=== PATIENT | female | born 1940 | race Asian ===

== ENCOUNTER 2019-01-10 09:56 | Inpatient (IN) | payer OTHER ==
--- NOTE | 2019-01-10 10:52 | PDOC ---
History of Present Illness - General Chief Complaint: Respiratory Stated Complaint: DIFFICULTY BREATHING Time Seen by Provider: 01/10/19 10:44 - History of Present Illness Initial Comments: 78 year old female with PMH of HTN, HLD, and NIDDM presenting with SOB worsening over the past two days. Patient states that she and chronic lower extremity swelling and wasn't sure if she was on a "Water pill". Denies any fevers, cough, chills, nausea, vomiting, diarrhea, or other symptoms. 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 Past History - Past Medical History Allergies/Adverse Reactions: Allergies Allergy/AdvReac Type Severity Reaction Status Date / Time No Known Allergies Allergy Verified 01/10/19 10:10 Home Medications: Ambulatory Orders Amlodipine Besylate [Norvasc -] 5 mg PO DAILY 01/10/19 Atorvastatin Calcium [Lipitor] 10 mg PO HS 01/10/19 Carvedilol [Coreg -] 25 mg PO BID 01/10/19 Losartan Potassium [Cozaar] 125 mg PO DAILY 01/10/19 Metformin HCl [Glucophage] 500 mg PO BID 01/10/19 - Suicide/Smoking/Psychosocial Hx Smoking History: Never smoked Review of Systems - Review of Systems Constitutional: No: Chills, Diaphoresis, Fever HEENTM: No: Blurred Vision, Tearing Respiratory: Yes: Orthopnea, Shortness of Breath, SOB with Exertion, SOB at Rest. No: Cough, Wheezing, Productive cough Cardiac (ROS): No: Chest Pain, Edema, Irregular Heart Rate ABD/GI: No: Diarrhea, Nausea, Vomiting : No: Burning, Dysuria, Discharge Musculoskeletal: No: Back Pain, Gout, Joint Pain Integumentary: No: Bruising, Erythema, Flushing Neurological: No: Headache, Numbness, Paresthesia Psychiatric: No: Anxiety, Depression Hematologic/Lymphatic: No: Anemia, Blood Clots, Easy Bleeding *Physical Exam - Vital Signs Last Vital Signs Temp Pulse Resp BP Pulse Ox 97.5 F L 58 L 20 148/44 L 87 L 01/10/19 10:17 01/10/19 10:17 01/10/19 10:17 01/10/19 10:17 01/10/19 10:17 - Physical Exam General Appearance: Yes: Nourished, Appropriately Dressed. No: Apparent Distress HEENT: positive: EOMI, LEONARDO, Normal ENT Inspection, Normal Voice Neck: positive: Trachea midline, Normal Thyroid, Supple. negative: Tender, Rigid Respiratory/Chest: positive: Rales. negative: Chest Tender, Lungs Clear, Normal Breath Sounds (bilateral crackles in lower lung peterson), Respiratory Distress Cardiovascular: positive: Regular Rhythm, Regular Rate ED Treatment Course - LABORATORY CBC & Chemistry Diagram: 01/10/19 11:19 01/10/19 11:19 Medical Decision Making - Medical Decision Making 78 year old female presenting with worsening SOB for the past two days with concern for new CHF corroborated by PE, elevated BNP, and CXr demonstrated pulmonary vascular congestion. Patietn given Lasix 40 IV and admitted under Golden Ortega for new CHF workup. EKG demonstrating rate 62, WV interval 140, QTc 420 , QRS 70, and normal axis with ST or t-wave changes. *DC/Admit/Observation/Transfer Diagnosis at time of Disposition: Acute on chronic diastolic (congestive) heart failure - Discharge Dispostion Condition at time of disposition: Stable Decision to Admit order: Yes - Referrals - Patient Instructions - Post Discharge Activity
[2019-01-10 11:38] LABS: BASO % 1.1 % (0-2.0); EOS % 1.7 % (0-4.5); HEMATOCRIT 35.7 % (32.4-45.2); HEMOGLOBIN 11.1 GM/dL (10.7-15.3); LYMPH % 17.1 % (8-40); MCH 21.2 pg (25.7-33.7); MCHC 31.1 g/dl (32.0-36.0); MEAN CELL VOLUME 68.3 fl (80-96); MEAN PLT VOLUME 7.7 fl (7.5-11.1); MONO % 5.2 % (3.8-10.2); NEUT % 74.9 % (42.8-82.8); PLATELET COUNT 229 K/MM3 (134-434); RBC 5.23 M/mm3 (3.60-5.2); RDW 17.5 % (11.6-15.6); WHITE BLOOD COUNT 7.4 K/mm3 (4.0-10.0)
[2019-01-10 11:52] LABS: INR 0.9 (0.83-1.09); PROTHROMBIN TIME (PATIENT) 10.6 SEC (9.7-13.0)
[2019-01-10 12:06] LABS: ALBUMIN 4.2 g/dl (3.4-5.0); ALK PHOS 67 U/L (45-117); ANION GAP 6 MMOL/L (8-16); BILIRUBIN,TOTAL 1.3 mg/dL (0.2-1); BLOOD UREA NITROGEN 25 mg/dL (7-18); CALCIUM 9.5 mg/dL (8.5-10.1); CHLORIDE 101 mmol/L (98-107); CO2 28 mmol/L (21-32); CREATININE 0.9 mg/dL (0.55-1.3); GLUCOSE,RANDOM 126 mg/dL (74-106); N-TERMINAL BNP 1029.4 pg/ml (5-450); SGOT/AST 25 U/L (15-37); SGPT/ALT 19 U/L (13-61); SODIUM 135 mmol/L (136-145); TOT PROT 8.5 g/dl (6.4-8.2)
[2019-01-10] MEDS ORDERED: FUROSEMIDE 40 MG/4 ML INJECTABLE VIAL IVPUSH ONE ×2 (12:17→18:14)
--- NOTE | 2019-01-10 12:22 | PDOC ---
Attending Attestation - Resident Resident Name: Susan Molina - ED Attending Attestation I have performed the following: I have examined & evaluated the patient, The case was reviewed & discussed with the resident, I agree w/resident's findings & plan, Exceptions are as noted - HPI HPI: 01/10/19 12:18 78 F with h/o HTN, DM, HLD, presenting to ED with SOB x 2 days. Pt reports ALICEA and orthopnea. Denies any CP. Endorses BLE swelling that is on and off. Pt denies h/o heart failure. Denies F/C. Denies cough. No recent travel/ immobilization. - Physicial Exam PE: 01/10/19 12:21 "GENERAL: Awake, alert, and fully oriented, in no acute distress. HEAD: No signs of trauma EYES: PERRLA, EOMI, sclera anicteric, conjunctiva clear ENT: Auricles normal inspection, hearing grossly normal, nares patent, oropharynx clear without exudates. Moist mucosa NECK: Nontender, no stepoffs, Normal ROM, supple, no lymphadenopathy, JVD, or masses LUNGS: + rales bilaterally HEART: Regular rate and rhythm, normal S1 and S2, no murmurs, rubs or gallops ABDOMEN: Soft, nontender, normoactive bowel sounds. No guarding, no rebound. No masses EXTREMITIES: +2 PE BLE NEUROLOGICAL: Cranial nerves II through XII intact. 5/5 strength and sensation in all extremities, Normal speech, normal gait, normal cerebellar function SKIN: Warm, Dry, normal turgor, no rashes or lesions noted. - Medical Decision Making 01/10/19 12:22 78 F with SOB, ALICEA, orthopnea. Clinically concerning for new onset CHF. Pt with BLE swelling, but no asymmetry. No risk factors for DVT. Low suspicion for PE. Pt with no ischemic EKG changes, but will r/o ACS. - Labs, trop, BNP - CXR - Diurese PRN - Admit tele
[2019-01-10] MEDS ORDERED: FUROSEMIDE 40 MG/4 ML INJECTABLE VIAL ONE ×2 (12:25→19:21)
[2019-01-10 13:55] LABS: ANISOCYTOSIS 2+; MACROCYTOSIS 0; OVALOCYTE 1+; PLATELET ESTIMATE NORMAL
--- NOTE | 2019-01-10 15:18 | EKG ---
Test Reason : Blood Pressure : / mmHG Vent. Rate : 062 BPM Atrial Rate : 062 BPM P-R Int : 140 ms QRS Dur : 070 ms QT Int : 414 ms P-R-T Axes : 057 078 033 degrees QTc Int : 420 ms NORMAL SINUS RHYTHM NORMAL ECG NO PREVIOUS ECGS AVAILABLE Confirmed by CHARISSE KEY MD ([id number]) on 01/10/2019 3:18:10 PM Referred By: Confirmed By:CHARISSE KEY MD
--- NOTE | 2019-01-10 18:10 | CON.CARD ---
Consult Consult Specialty:: Cardiology Referred by:: Emergency Medicine Reason for Consultation:: CHF - History of Present Illness Chief Complaint: Dyspnea History of Present Illness: 78 F with h/o HTN, DM, HLD, presenting to ED with SOB, ALICEA, bilateral LE edema and orthopnea without CP, palpitations, near or true syncope, PND. Reports medication and diet compliance, denies NSAID use. - History Source History Provided By: Patient Limitations to Obtaining History: No Limitations - Smoking History Smoking history: Never smoked Home Medications - Allergies Allergies/Adverse Reactions: Allergies Allergy/AdvReac Type Severity Reaction Status Date / Time No Known Allergies Allergy Verified 01/10/19 10:10 - Home Medications Home Medications: Ambulatory Orders Amlodipine Besylate [Norvasc -] 5 mg PO DAILY 01/10/19 Atorvastatin Calcium [Lipitor] 10 mg PO HS 01/10/19 Carvedilol [Coreg -] 25 mg PO BID 01/10/19 Losartan Potassium [Cozaar] 125 mg PO DAILY 01/10/19 Metformin HCl [Glucophage] 500 mg PO BID 01/10/19 Review of Systems - Review of Systems Cardiovascular: reports: Edema Respiratory: reports: Orthopnea, SOB, SOB on Exertion Vital Signs: Vital Signs Temperature 97.5 F L 01/10/19 10:17 Pulse Rate 58 L 01/10/19 16:11 Respiratory Rate 18 01/10/19 16:11 Blood Pressure 148/53 L 01/10/19 16:11 O2 Sat by Pulse Oximetry (%) 98 01/10/19 16:11 Constitutional: Yes: No Distress, Calm Neck: Yes: Supple Respiratory: Yes: Regular, Diminished, On Nasal O2 Gastrointestinal: Yes: Normal Bowel Sounds, Soft Cardiovascular: Yes: Regular Rate and Rhythm JVD: No Carotid Bruit: No Heart Sounds: Yes: S1, S2 Murmur: Yes: Systolic Murmur, Grade 1 Edema: Yes Edema: LLE: 1+, RLE: 1+ - Other Data Labs, Other Data: CBC, BMP 01/10/19 11:19 01/10/19 11:19 INR, PTT INR 0.90 (0.83-1.09) 01/10/19 11:19 Troponin, BNP 01/10/19 11:19 Troponin I < 0.02 B-Natriuretic Peptide 1029.4 H Troponin, BNP 01/10/19 11:19 Troponin I < 0.02 B-Natriuretic Peptide 1029.4 H Imaging - Results Chest X-ray: Report Reviewed (Congestion) EKG: Report Reviewed (NSR @ [address]-T changes) Problem List - Problems (1) Acute on chronic diastolic (congestive) heart failure Code(s): I50.33 - ACUTE ON CHRONIC DIASTOLIC (CONGESTIVE) HEART FAILURE (2) Hyperlipidemia Code(s): E78.5 - HYPERLIPIDEMIA, UNSPECIFIED Qualifiers: Hyperlipidemia type: pure hypercholesterolemia Qualified Code(s): E78.00 - Pure hypercholesterolemia, unspecified; E78.0 - Pure hypercholesterolemia (3) Type 2 diabetes mellitus Code(s): E11.9 - TYPE 2 DIABETES MELLITUS WITHOUT COMPLICATIONS Qualifiers: Diabetes mellitus skilled nursing insulin use: without skilled nursing use (4) Hypertensive cardiomyopathy Code(s): I11.9 - HYPERTENSIVE HEART DISEASE WITHOUT HEART FAILURE; I43 - CARDIOMYOPATHY IN DISEASES CLASSIFIED ELSEWHERE Qualifiers: Heart failure presence: with heart failure Qualified Code(s): I11.0 - Hypertensive heart disease with heart failure; I43 - Cardiomyopathy in diseases classified elsewhere Assessment/Plan 1. Acute on chronic diastolic heart failure 2. HTN cardiomyopathy 3. Hyperlipidemia 4. Type 2 DM P:1. IV diuresis with monitor diuretic response, renal fxn and electrolytes 2. Continue losartan 100 qd, carvedilol 12.5 bid, Lipitor 10 qhd 3. Echocardiogram to assess ventricular and valve fxn, check TSH, lipid panel, HA1c 4. Thank you for consultative opportunity
--- NOTE | 2019-01-10 19:44 | HP ---
Admitting History and Physical - Primary Care Physician PCP: Jane Ortega - Admission History of Present Illness: 78 F with h/o HTN, DM, HLD, presenting to ED with SOB x 2 days. Pt reports ALICEA and orthopnea. Denies any CP. Endorses BLE swelling that is on and off. Pt denies h/o heart failure. Denies F/C. Denies cough. No recent travel/ immobilization. - Past Medical History Cardiovascular: Yes: HTN, Hyperlipdemia Endocrine: Yes: Diabetes Mellitus - Smoking History Smoking history: Never smoked Home Medications - Allergies Allergies/Adverse Reactions: Allergies Allergy/AdvReac Type Severity Reaction Status Date / Time No Known Allergies Allergy Verified 01/10/19 10:10 - Home Medications Home Medications: Ambulatory Orders Amlodipine Besylate [Norvasc -] 5 mg PO DAILY 01/10/19 Atorvastatin Calcium [Lipitor] 10 mg PO HS 01/10/19 Carvedilol [Coreg -] 25 mg PO BID 01/10/19 Losartan Potassium [Cozaar] 125 mg PO DAILY 01/10/19 Metformin HCl [Glucophage] 500 mg PO BID 01/10/19 Furosemide [Lasix -] 20 mg PO DAILY #30 tablet 01/11/19 Physical Examination Vital Signs: Vital Signs Temperature 97.5 F L 01/10/19 10:17 Pulse Rate 58 L 01/10/19 16:11 Respiratory Rate 18 01/10/19 16:11 Blood Pressure 148/53 L 01/10/19 16:11 O2 Sat by Pulse Oximetry (%) 98 01/10/19 16:11 Constitutional: Yes: No Distress HENT: Yes: Atraumatic Neck: Yes: Supple Cardiovascular: Yes: Regular Rate and Rhythm Respiratory: Yes: Rhonchi Gastrointestinal: Yes: Normal Bowel Sounds Extremities: Yes: WNL Edema: No Neurological: Yes: Alert, Oriented Labs: CBC, BMP 01/10/19 11:19 01/10/19 11:19 Problem List - Problems (1) Acute on chronic diastolic (congestive) heart failure Assessment/Plan: on po lasix Code(s): I50.33 - ACUTE ON CHRONIC DIASTOLIC (CONGESTIVE) HEART FAILURE (2) Hyperlipidemia Assessment/Plan: on meds Code(s): E78.5 - HYPERLIPIDEMIA, UNSPECIFIED Qualifiers: Hyperlipidemia type: pure hypercholesterolemia Qualified Code(s): E78.00 - Pure hypercholesterolemia, unspecified; E78.0 - Pure hypercholesterolemia (3) Hypertensive cardiomyopathy Assessment/Plan: on meds Code(s): I11.9 - HYPERTENSIVE HEART DISEASE WITHOUT HEART FAILURE; I43 - CARDIOMYOPATHY IN DISEASES CLASSIFIED ELSEWHERE Qualifiers: Heart failure presence: with heart failure Qualified Code(s): I11.0 - Hypertensive heart disease with heart failure; I43 - Cardiomyopathy in diseases classified elsewhere (4) Type 2 diabetes mellitus Assessment/Plan: on meds Code(s): E11.9 - TYPE 2 DIABETES MELLITUS WITHOUT COMPLICATIONS Qualifiers: Diabetes mellitus senior living insulin use: without terminal make up operator use Assessment/Plan Laboratory Tests 01/10/19 01/10/19 01/10/19 11:19 11:19 11:19 WBC 7.4 RBC 5.23 H Hgb 11.1 Hct 35.7 MCV 68.3 L MCH 21.2 L MCHC 31.1 L RDW 17.5 H Plt Count 229 MPV 7.7 Absolute Neuts (auto) 5.5 Neutrophils % 74.9 Lymphocytes % 17.1 Monocytes % 5.2 Eosinophils % 1.7 Basophils % 1.1 Nucleated RBC % 0 Hypochromia 1+ Platelet Estimate Normal Polychromasia 1+ Poikilocytosis 1+ Anisocytosis 2+ Microcytosis 2+ Macrocytosis 0 Ovalocytes 1+ Schistocytes 1+ PT with INR 10.60 INR 0.90 Sodium 135 L Potassium 5.0 Chloride 101 Carbon Dioxide 28 Anion Gap 6 L BUN 25 H Creatinine 0.9 Creat Clearance w eGFR 60.56 Random Glucose 126 H Calcium 9.5 Total Bilirubin 1.3 H AST 25 ALT 19 Alkaline Phosphatase 67 Troponin I < 0.02 B-Natriuretic Peptide 1029.4 H Total Protein 8.5 H Albumin 4.2 Active Medications Generic Name Dose Route Start Last Admin Trade Name Freq PRN Reason Stop Dose Admin Atorvastatin Calcium 10 mg 01/10/19 22:00 Lipitor - PO HS [facility] Carvedilol 12.5 mg 01/10/19 22:00 Coreg - PO BID RITU Furosemide 40 mg 01/11/19 10:00 Lasix Injection - IVPUSH DAILY [facility] Losartan Potassium 100 mg 01/11/19 10:00 Cozaar - PO DAILY [facility] Metformin HCl 500 mg 01/11/19 07:00 Glucophage - PO BID@0700,1630 [facility]
[2019-01-10] MEDS ORDERED: ATORVASTATIN CA 10 MG TABLET (FP) ONE (22:29)
[2019-01-10] MEDS ORDERED: HEPARIN NA (PORCINE) 5,000 UNITS/ML 1ML VIAL ONE (22:29)
[2019-01-10] MEDS ORDERED: CARVEDILOL 12.5 MG TABLET (FP) ONE (22:29)
[2019-01-10] MEDS: CARVEDILOL 12.5 MG TABLET (FP) PO SCH (22:44)
[2019-01-10] MEDS: HEPARIN NA (PORCINE) 5,000 UNITS/ML 1ML VIAL SQ SCH (22:45)
[2019-01-10] MEDS: ATORVASTATIN CA 10 MG TABLET (FP) PO SCH (22:45)
[2019-01-11] MEDS: metFORMIN HCL 500 MG TABLET (FP) PO SCH ×2 (07:05→17:26)
[2019-01-11 07:14] LABS: ANION GAP 5 MMOL/L (8-16); BLOOD UREA NITROGEN 28 mg/dL (7-18); CALCIUM 9.1 mg/dL (8.5-10.1); CHLORIDE 98 mmol/L (98-107); CHOLESTEROL 148 mg/dL (50-200); CO2 33 mmol/L (21-32); GLUCOSE,RANDOM 99 mg/dL (74-106); HDL CHOLESTEROL 63 mg/dL (40-60); POTASSIUM 4.1 mmol/L (3.5-5.1); SODIUM 136 mmol/L (136-145); TRIGLYCERIDES 94 mg/dL (0-150)
[2019-01-11 07:23] VITALS: BMI 28.0
--- NOTE | 2019-01-11 09:52 | PN ---
Progress Note, Physician Chief Complaint: Events noted Not in distress History of Present Illness: Patient was seen and examined. Awake and alert. Chart was reviewed Denies chest pain or palpitations. Less SOB this am - Current Medication List Current Medications: Active Medications Atorvastatin Calcium (Lipitor -) 10 mg PO HS [facility] Last Admin: 01/10/19 22:45 Dose: 10 mg Carvedilol (Coreg -) 12.5 mg PO BID [facility] Last Admin: 01/10/19 22:44 Dose: Not Given Furosemide (Lasix Injection -) 40 mg IVPUSH DAILY [facility] Heparin Sodium (Porcine) (Heparin -) 5,000 unit SQ BID [facility] Last Admin: 01/10/19 22:45 Dose: Not Given Losartan Potassium (Cozaar -) 100 mg PO DAILY [facility] Metformin HCl (Glucophage -) 500 mg PO BID@0700,1630 [facility] Last Admin: 01/11/19 07:05 Dose: 500 mg - Objective Vital Signs: Vital Signs Temperature 97.5 F L 01/11/19 08:21 Pulse Rate 58 L 01/11/19 08:21 Respiratory Rate 20 01/11/19 08:21 Blood Pressure 142/49 L 01/11/19 08:21 O2 Sat by Pulse Oximetry (%) 94 L 01/11/19 08:21 Eyes: Yes: PERRL HENT: Yes: Atraumatic Neck: Yes: Supple Cardiovascular: Yes: Regular Rate and Rhythm, Murmur (Soft SM), S1, S2 Respiratory: Yes: CTA Bilaterally Gastrointestinal: Yes: Normal Bowel Sounds, Soft. No: Tenderness Edema: Yes Edema: LLE: Trace, RLE: Trace Additional Findings/Remarks: - Review of Systems Constitutional: denies: Chills, Fever Cardiovascular: denies: Chest Pain. denies: Palpitations, (+) Shortness of Breath Respiratory: (+) Cough. denies: Hemoptysis, Orthopnea, PND, (+) SOB, SOB on Exertion Gastrointestinal: denies: Abdominal Pain, Constipation, Diarrhea, Melena, Nausea , Rectal Bleeding, Vomiting Neurological: denies: Dizziness, Headache, Seizure, Syncope Labs: CBC, BMP 01/10/19 11:19 01/11/19 05:30 INR, PTT INR 0.90 (0.83-1.09) 01/10/19 11:19 Problem List - Problems (1) HTN (hypertension) Code(s): I10 - ESSENTIAL (PRIMARY) HYPERTENSION Qualifiers: Hypertension type: essential hypertension Qualified Code(s): I10 - Essential (primary) hypertension (2) Acute on chronic diastolic (congestive) heart failure Code(s): I50.33 - ACUTE ON CHRONIC DIASTOLIC (CONGESTIVE) HEART FAILURE (3) Hyperlipidemia Code(s): E78.5 - HYPERLIPIDEMIA, UNSPECIFIED Qualifiers: Hyperlipidemia type: pure hypercholesterolemia Qualified Code(s): E78.00 - Pure hypercholesterolemia, unspecified; E78.0 - Pure hypercholesterolemia (4) Type 2 diabetes mellitus Code(s): E11.9 - TYPE 2 DIABETES MELLITUS WITHOUT COMPLICATIONS Qualifiers: Diabetes mellitus roasterman insulin use: without roasterman use Assessment/Plan 1. Acute on chronic diastolic LV failure 2. HTN 3. Hypercholesterolemia 4. Type 2 DM PLAN: 1. IV diuresis with monitoring renal function and electrolytes 2. Continue Losartan 100 mg QD, Carvedilol 12.5 mg BID and Lipitor 10 QHS 3. Echocardiography to assess LV/RV and valvular function - preliminary reveals normal LV systolic function, mild to moderate TR and pulmonary HTN. Official report to follow Further plans are to follow Lakhwinder Stanley MD
[2019-01-11] MEDS ORDERED: FUROSEMIDE 40 MG/4 ML INJECTABLE VIAL IVPUSH SCH (10:00)
[2019-01-11] MEDS: CARVEDILOL 12.5 MG TABLET (FP) PO SCH ×2 (10:40→22:17)
[2019-01-11] MEDS: LOSARTAN POTASSIUM 50 MG TABLET (FP) PO SCH (10:41)
[2019-01-11] MEDS: HEPARIN NA (PORCINE) 5,000 UNITS/ML 1ML VIAL SQ SCH ×2 (10:48→22:17)
--- NOTE | 2019-01-11 13:13 | ECHO ---
Version: 1 Name: KAR LENNON Exam: Adult Echocardiogram Study Date: 01/11/2019, 9:28 AM Age: 78 Years MMode/2D Measurements & Calculations IVSd: 0.98 cm LVIDs: 2.42 cm LVIDd: 4.2 cm LVPWd: 1.01 cm LAV (MOD-bp): 64.6 ml LVOT diam: 2.01 cm Ao root diam: 2.34 cm LA dimension: 3.5 cm Doppler Measurements & Calculations MV E max jesus: 107.0 cm/sec Med E/e': 20.1 MV A max jesus: 106.7 cm/sec Med Peak E' Jesus: 5.3 cm/sec MV E/A: 1.00 Lat E/e': 17.6 Lat Peak E' Jesus: 6.1 cm/sec MR max P.7 mmHg Ao max P.7 mmHg Ao V2 max: 198.2 cm/sec TR max jesus: 366.8 cm/sec TR max P.9 mmHg Left Ventricle The left ventricular size, thickness and function are normal. Ejection Fraction = 70. The transmitra l spectral Doppler flow pattern is suggestive of impaired LV relaxation. Right Ventricle The right ventricle is normal in size and function. Atria Borderline left atrial enlargement. Right atrial size is normal. Mitral Valve The mitral valve is normal. There is trace to mild mitral regurgitation. Tricuspid Valve The tricuspid valve is not well visualized, but is grossly normal. There is mild to moderate tricusp id regurgitation. There is severe pulmonary hypertension. Right ventricular systolic pressure is elevat ed at 65 mmhg. Assuming the RA pressure is 10 mmHg. Aortic Valve There is moderate aortic sclerosis.;. No hemodynamically significant valvular aortic stenosis. Pulmonic Valve The pulmonic valve is not well visualized. Great Vessels The aortic root is normal size. Pericardium/Pleura There is no pericardial effusion. Summary Statements The left ventricular size, thickness and function are normal. Ejection Fraction = 70. The right ventricle is normal in size and function. Borderline left atrial enlargement. There is moderate aortic sclerosis.; No hemodynamically signific ant valvular aortic stenosis. The mitral valve is normal. There is trace to mild mitral regurgitation. There is severe pulmonary hypertension. Right ventricular systolic pressure is elevated at 65 mmhg. Assuming the RA pressure is 10 mmHg MD Joann Zavala01/11/2019, 12:12 PM Ordering Physician: Osmany Pride Performed By: Niru Avendano
--- NOTE | 2019-01-11 17:45 | DS ---
Physical Examination Vital Signs: Vital Signs Temperature 97.3 F L 01/11/19 15:00 Pulse Rate 50 L 01/11/19 15:00 Respiratory Rate 18 01/11/19 15:00 Blood Pressure 115/68 01/11/19 15:00 O2 Sat by Pulse Oximetry (%) 94 L 01/11/19 08:21 Labs: CBC, BMP 01/10/19 11:19 01/11/19 05:30 Discharge Summary Reason For Visit: SHORTNESS OF BREATH Current Active Problems Acute on chronic diastolic (congestive) heart failure (Acute) HTN (hypertension) (Acute) Hyperlipidemia (Acute) Hypertensive cardiomyopathy (Acute) Type 2 diabetes mellitus (Acute) Condition: Stable - Instructions - Home Medications Comprehensive Discharge Medication List: Ambulatory Orders Amlodipine Besylate [Norvasc -] 5 mg PO DAILY 01/10/19 Atorvastatin Calcium [Lipitor] 10 mg PO HS 01/10/19 Carvedilol [Coreg -] 25 mg PO BID 01/10/19 Losartan Potassium [Cozaar] 125 mg PO DAILY 01/10/19 Metformin HCl [Glucophage] 500 mg PO BID 01/10/19 Furosemide [Lasix -] 20 mg PO DAILY #30 tablet 01/11/19
--- NOTE | 2019-01-11 19:12 | PN ---
Progress Note, Physician History of Present Illness: comfortable - Current Medication List Current Medications: Active Medications Atorvastatin Calcium (Lipitor -) 10 mg PO HS [facility] Last Admin: 01/10/19 22:45 Dose: 10 mg Carvedilol (Coreg -) 12.5 mg PO BID [facility] Last Admin: 01/11/19 10:40 Dose: 12.5 mg Furosemide (Lasix -) 20 mg PO DAILY [facility] Heparin Sodium (Porcine) (Heparin -) 5,000 unit SQ BID [facility] Last Admin: 01/11/19 10:48 Dose: 5,000 unit Losartan Potassium (Cozaar -) 100 mg PO DAILY [facility] Last Admin: 01/11/19 10:41 Dose: 100 mg Metformin HCl (Glucophage -) 500 mg PO BID@0700,1630 [facility] Last Admin: 01/11/19 17:26 Dose: 500 mg - Objective Vital Signs: Vital Signs Temperature 97.3 F L 01/11/19 15:00 Pulse Rate 50 L 01/11/19 15:00 Respiratory Rate 18 01/11/19 15:00 Blood Pressure 115/68 01/11/19 15:00 O2 Sat by Pulse Oximetry (%) 94 L 01/11/19 08:21 HENT: Yes: WNL Neck: Yes: WNL Cardiovascular: Yes: Regular Rate and Rhythm Respiratory: Yes: CTA Bilaterally Gastrointestinal: Yes: Normal Bowel Sounds Extremities: Yes: WNL Edema: No Peripheral Pulses WNL: Yes Neurological: Yes: Alert, Oriented Labs: CBC, BMP 01/10/19 11:19 01/11/19 05:30 INR, PTT INR 0.90 (0.83-1.09) 01/10/19 11:19 Problem List - Problems (1) Acute on chronic diastolic (congestive) heart failure Assessment/Plan: on po lasix Code(s): I50.33 - ACUTE ON CHRONIC DIASTOLIC (CONGESTIVE) HEART FAILURE (2) Hyperlipidemia Assessment/Plan: on meds Code(s): E78.5 - HYPERLIPIDEMIA, UNSPECIFIED Qualifiers: Hyperlipidemia type: pure hypercholesterolemia Qualified Code(s): E78.00 - Pure hypercholesterolemia, unspecified; E78.0 - Pure hypercholesterolemia (3) Hypertensive cardiomyopathy Assessment/Plan: on meds Code(s): I11.9 - HYPERTENSIVE HEART DISEASE WITHOUT HEART FAILURE; I43 - CARDIOMYOPATHY IN DISEASES CLASSIFIED ELSEWHERE Qualifiers: Heart failure presence: with heart failure Qualified Code(s): I11.0 - Hypertensive heart disease with heart failure; I43 - Cardiomyopathy in diseases classified elsewhere (4) Type 2 diabetes mellitus Assessment/Plan: on meds Code(s): E11.9 - TYPE 2 DIABETES MELLITUS WITHOUT COMPLICATIONS Qualifiers: Diabetes mellitus warranty administrator insulin use: without detention use
[2019-01-11] MEDS: ATORVASTATIN CA 10 MG TABLET (FP) PO SCH (22:17)
[2019-01-12] MEDS: metFORMIN HCL 500 MG TABLET (FP) PO SCH ×2 (07:42→17:15)
[2019-01-12] MEDS: CARVEDILOL 12.5 MG TABLET (FP) PO SCH ×2 (10:25→21:07)
[2019-01-12] MEDS: LOSARTAN POTASSIUM 50 MG TABLET (FP) PO SCH (10:25)
[2019-01-12] MEDS: HEPARIN NA (PORCINE) 5,000 UNITS/ML 1ML VIAL SQ SCH ×2 (10:25→21:07)
[2019-01-12] MEDS: FUROSEMIDE 20 MG TABLET (FP) PO SCH (10:26)
--- NOTE | 2019-01-12 11:04 | EKG ---
Test Reason : Blood Pressure : / mmHG Vent. Rate : 056 BPM Atrial Rate : 056 BPM P-R Int : 140 ms QRS Dur : 070 ms QT Int : 456 ms P-R-T Axes : 035 049 052 degrees QTc Int : 440 ms SINUS BRADYCARDIA OTHERWISE NORMAL ECG WHEN COMPARED WITH ECG OF 10-JAN-2019 09:56, NO SIGNIFICANT CHANGE WAS FOUND Confirmed by ANDREA VANG MD ([id number]) on 01/12/2019 11:04:26 AM Referred By: Confirmed By:ANDREA VANG MD
--- NOTE | 2019-01-12 11:38 | PN ---
Progress Note, Physician History of Present Illness: 78 F with h/o HTN, DM, HLD, presenting to ED with SOB, ALICEA, bilateral LE edema and orthopnea without CP, palpitations, near or true syncope, PND. Reports medication and diet compliance, denies NSAID use. - Current Medication List Current Medications: Active Medications Atorvastatin Calcium (Lipitor -) 10 mg PO HS [facility] Last Admin: 01/11/19 22:17 Dose: 10 mg Carvedilol (Coreg -) 12.5 mg PO BID [facility] Last Admin: 01/12/19 10:25 Dose: 12.5 mg Furosemide (Lasix -) 20 mg PO DAILY [facility] Last Admin: 01/12/19 10:26 Dose: 20 mg Heparin Sodium (Porcine) (Heparin -) 5,000 unit SQ BID [facility] Last Admin: 01/12/19 10:25 Dose: 5,000 unit Losartan Potassium (Cozaar -) 100 mg PO DAILY [facility] Last Admin: 01/12/19 10:25 Dose: 100 mg Metformin HCl (Glucophage -) 500 mg PO BID@0700,1630 [facility] Last Admin: 01/12/19 07:42 Dose: 500 mg - Objective Vital Signs: Vital Signs Temperature 98.7 F 01/12/19 06:00 Pulse Rate 60 01/12/19 06:00 Respiratory Rate 18 01/12/19 06:00 Blood Pressure 123/48 L 01/12/19 06:00 O2 Sat by Pulse Oximetry (%) 99 01/11/19 21:00 Constitutional: Yes: No Distress, Calm, Thin Neck: Yes: Supple Cardiovascular: Yes: Regular Rate and Rhythm Respiratory: Yes: Regular, CTA Bilaterally Gastrointestinal: Yes: Normal Bowel Sounds, Soft Edema: No Labs: CBC, BMP 01/10/19 11:19 01/11/19 05:30 INR, PTT INR 0.90 (0.83-1.09) 01/10/19 11:19 - ....Imaging EKG: Report Reviewed (Tele: SR) Problem List - Problems (1) Acute on chronic diastolic (congestive) heart failure Code(s): I50.33 - ACUTE ON CHRONIC DIASTOLIC (CONGESTIVE) HEART FAILURE (2) Hyperlipidemia Code(s): E78.5 - HYPERLIPIDEMIA, UNSPECIFIED Qualifiers: Hyperlipidemia type: pure hypercholesterolemia Qualified Code(s): E78.00 - Pure hypercholesterolemia, unspecified; E78.0 - Pure hypercholesterolemia (3) Type 2 diabetes mellitus Code(s): E11.9 - TYPE 2 DIABETES MELLITUS WITHOUT COMPLICATIONS Qualifiers: Diabetes mellitus [facility] insulin use: without ocean transportation intermediary use (4) Hypertensive cardiomyopathy Code(s): I11.9 - HYPERTENSIVE HEART DISEASE WITHOUT HEART FAILURE; I43 - CARDIOMYOPATHY IN DISEASES CLASSIFIED ELSEWHERE Qualifiers: Heart failure presence: with heart failure Qualified Code(s): I11.0 - Hypertensive heart disease with heart failure; I43 - Cardiomyopathy in diseases classified elsewhere Assessment/Plan 01/11/2019 Echocardiogram: Normal LV and RV size and fxn LVEF 70%, tr-mild MR RVSP 65 mmHg 1. Acute on chronic diastolic heart failure with pulm HTN 2. HTN cardiomyopathy 3. Hyperlipidemia 4. Type 2 DM P:1. Oral diuresis (Lasix 20 qd) with monitor diuretic response, renal fxn and electrolytes 2. Continue losartan 100 qd, carvedilol 12.5 bid, Lipitor 10 qhd 3. D/c planning with f/u in office
--- NOTE | 2019-01-12 13:15 | PN ---
Progress Note (short form) - Note Progress Note: PULMONARY CONSULTATION DICTATED 01/12/19 IMP ACUTE HYPOXEMIC RESPIRATORY FAILURE ACUTE DIASTOLIC HF PULMONARY HTN HYPERTENSIVE CARDIOVASCULAR DISEASE DM HLD PLAN O2 LASIX CHEST CT PFTS OUTPATIENT V/Q OUTPATIENT NOCTURNAL O2 SAT MONITORING OUTPATIENT AMBULATORY O2 SAT ON RA DR GUZMAN Problem List - Problems (1) Acute hypoxemic respiratory failure Code(s): J96.01 - ACUTE RESPIRATORY FAILURE WITH HYPOXIA (2) Acute on chronic diastolic (congestive) heart failure Code(s): I50.33 - ACUTE ON CHRONIC DIASTOLIC (CONGESTIVE) HEART FAILURE (3) HTN (hypertension) Code(s): I10 - ESSENTIAL (PRIMARY) HYPERTENSION Qualifiers: Hypertension type: essential hypertension Qualified Code(s): I10 - Essential (primary) hypertension (4) Hyperlipidemia Code(s): E78.5 - HYPERLIPIDEMIA, UNSPECIFIED Qualifiers: Hyperlipidemia type: pure hypercholesterolemia Qualified Code(s): E78.00 - Pure hypercholesterolemia, unspecified; E78.0 - Pure hypercholesterolemia (5) Hypertensive cardiomyopathy Code(s): I11.9 - HYPERTENSIVE HEART DISEASE WITHOUT HEART FAILURE; I43 - CARDIOMYOPATHY IN DISEASES CLASSIFIED ELSEWHERE Qualifiers: Heart failure presence: with heart failure Qualified Code(s): I11.0 - Hypertensive heart disease with heart failure; I43 - Cardiomyopathy in diseases classified elsewhere (6) Type 2 diabetes mellitus Code(s): E11.9 - TYPE 2 DIABETES MELLITUS WITHOUT COMPLICATIONS Qualifiers: Diabetes mellitus terminal press operator insulin use: without terminal press operator use
--- NOTE | 2019-01-12 15:04 | CONS ---
DATE OF CONSULTATION: 01/12/2019 PULMONARY CONSULTATION REFERRING PHYSICIAN: Jane Ortega MD Patient is a 78-year-old Frisian female with past medical history of hypertension, diabetes, hyperlipidemia, nonsmoker admitted to [facility] with a complaint of 2-day history of increasing shortness of breath and dyspnea on exertion. Patient states she was doing well until 2 days prior to admission when started noticing increasing dyspnea on exertion and was also orthopneic. She also noted increasing bilateral lower extremity swelling which is increased in severity. She denies any chest pain. Denies any fevers, chills. Denies any hemoptysis. Denies any cough. She denies any history of CHF or COPD. On admission, she was admitted to telemetry unit. She had an x-ray performed which reveals cardiomegaly and pulmonary vascular congestion. She was admitted to the telemetry unit and evaluated by Dr. Ronquillo for cardiology. She was placed on Lasix with good clinical response. Of note, she was noted initially to be hypoxemic. Patient had an echocardiogram early today which reveals likely diastolic dysfunction. She is also noted to have severe pulmonary hypertension with a systolic pressure of 65. Patient denies any history of occupational exposures. She apparently, according to the , snores but no witnesses apneic episodes. No excessive daytime sleepiness. PAST MEDICAL HISTORY: Again includes hypertension, hyperlipidemia, diabetes. REVIEW OF SYSTEMS: Positive orthopnea. Positive dyspnea on exertion. No chest pain. No palpitation. No hemoptysis. No abdominal pain. Positive lower extremity edema. MEDICATIONS: Include Cozaar, heparin, Coreg, Glucophage, Lipitor, and Lasix. SOCIAL HISTORY: No occupational exposures. Nonsmoker. PHYSICAL EXAMINATION: General: Patient is a well-developed, well-nourished female, awake, alert, in no acute distress. Vital Signs: She is afebrile, blood pressure 123/48, respiratory rate is 18, and O2 saturation is 99% on 3 L nasal cannula. HEENT: Exam is normocephalic, atraumatic. Neck: Supple. Heart: Irregular, S1, S2. Chest: A few bibasilar crackles. Abdomen: Soft. Bowel sounds positive. Extremities: No cyanosis or edema. LABORATORIES: Sodium is 136. BUN 26, creatinine 1.0. BNP is 1029. WBC is 7.4, hemoglobin 11.1, hematocrit 35.7, platelet count 229,000. Chest x-ray reveals cardiomegaly, mild pulmonary vascular congestion, prominent sedrick bilaterally. IMPRESSION: Acute hypoxemic respiratory failure secondary to: 1. Acute diastolic heart failure. 2. Severe pulmonary hypertension. 3. Hypertension. 4. Hyperlipidemia. 5. Diabetes. PLAN: Continue Lasix. Supplemental O2 as needed. Also, check O2 saturation rest and post exercise. home O2. Workup for pulmonary hypertension. Would consider nocturnal O2 saturation monitoring as outpatient as well as PFT as an outpatient. Thank you. Will follow closely with you. RANDA GUZMAN M.D. FANI/[id number]
--- NOTE | 2019-01-12 16:22 | PN ---
Progress Note, Physician - Current Medication List Current Medications: Active Medications Atorvastatin Calcium (Lipitor -) 10 mg PO HS [facility] Last Admin: 01/11/19 22:17 Dose: 10 mg Carvedilol (Coreg -) 12.5 mg PO BID [facility] Last Admin: 01/12/19 10:25 Dose: 12.5 mg Furosemide (Lasix -) 20 mg PO DAILY [facility] Last Admin: 01/12/19 10:26 Dose: 20 mg Heparin Sodium (Porcine) (Heparin -) 5,000 unit SQ BID [facility] Last Admin: 01/12/19 10:25 Dose: 5,000 unit Losartan Potassium (Cozaar -) 100 mg PO DAILY [facility] Last Admin: 01/12/19 10:25 Dose: 100 mg Metformin HCl (Glucophage -) 500 mg PO BID@0700,1630 [facility] Last Admin: 01/12/19 07:42 Dose: 500 mg - Objective Vital Signs: Vital Signs Temperature 98.3 F 01/12/19 14:08 Pulse Rate 53 L 01/12/19 14:08 Respiratory Rate 18 01/12/19 14:08 Blood Pressure 121/50 L 01/12/19 14:08 O2 Sat by Pulse Oximetry (%) 96 01/12/19 10:00 Constitutional: Yes: No Distress HENT: Yes: Atraumatic Neck: Yes: Supple Cardiovascular: Yes: Regular Rate and Rhythm Respiratory: Yes: Rhonchi Gastrointestinal: Yes: Normal Bowel Sounds Extremities: Yes: WNL Edema: No Neurological: Yes: Alert, Oriented Labs: CBC, BMP 01/10/19 11:19 01/11/19 05:30 INR, PTT INR 0.90 (0.83-1.09) 01/10/19 11:19 Problem List - Problems (1) Acute on chronic diastolic (congestive) heart failure Assessment/Plan: on po lasix Code(s): I50.33 - ACUTE ON CHRONIC DIASTOLIC (CONGESTIVE) HEART FAILURE (2) Hyperlipidemia Assessment/Plan: on meds Code(s): E78.5 - HYPERLIPIDEMIA, UNSPECIFIED Qualifiers: Hyperlipidemia type: pure hypercholesterolemia Qualified Code(s): E78.00 - Pure hypercholesterolemia, unspecified; E78.0 - Pure hypercholesterolemia (3) Hypertensive cardiomyopathy Assessment/Plan: on meds Code(s): I11.9 - HYPERTENSIVE HEART DISEASE WITHOUT HEART FAILURE; I43 - CARDIOMYOPATHY IN DISEASES CLASSIFIED ELSEWHERE Qualifiers: Heart failure presence: with heart failure Qualified Code(s): I11.0 - Hypertensive heart disease with heart failure; I43 - Cardiomyopathy in diseases classified elsewhere (4) Type 2 diabetes mellitus Code(s): E11.9 - TYPE 2 DIABETES MELLITUS WITHOUT COMPLICATIONS Qualifiers: Diabetes mellitus retirement insulin use: without retirement use Assessment/Plan ct scan report reviewed need id and pulmonary input
[2019-01-12] MEDS: ATORVASTATIN CA 10 MG TABLET (FP) PO SCH (21:07)
[2019-01-13] MEDS: metFORMIN HCL 500 MG TABLET (FP) PO SCH ×2 (06:00→17:17)
[2019-01-13 08:58] VITALS: PULSE 54
[2019-01-13] MEDS: LOSARTAN POTASSIUM 50 MG TABLET (FP) PO SCH (09:54)
[2019-01-13] MEDS: HEPARIN NA (PORCINE) 5,000 UNITS/ML 1ML VIAL SQ SCH (09:55)
[2019-01-13] MEDS: CARVEDILOL 12.5 MG TABLET (FP) PO SCH (09:55)
[2019-01-13] MEDS: FUROSEMIDE 20 MG TABLET (FP) PO SCH (09:55)
--- NOTE | 2019-01-13 10:34 | PN ---
Progress Note, Physician History of Present Illness: SOB, ALICEA, bilateral LE edema and orthopnea resolved with diuresis, denies fevers , chest CT shows patchy ground glass opacities bilaterally c/w congestion, do not suspect infectious/inflammatory etiologies. - Current Medication List Current Medications: Active Medications Atorvastatin Calcium (Lipitor -) 10 mg PO HS [facility] Last Admin: 01/12/19 21:07 Dose: 10 mg Carvedilol (Coreg -) 12.5 mg PO BID [facility] Last Admin: 01/13/19 09:55 Dose: 12.5 mg Furosemide (Lasix -) 20 mg PO DAILY [facility] Last Admin: 01/13/19 09:55 Dose: 20 mg Heparin Sodium (Porcine) (Heparin -) 5,000 unit SQ BID [facility] Last Admin: 01/13/19 09:55 Dose: 5,000 unit Losartan Potassium (Cozaar -) 100 mg PO DAILY [facility] Last Admin: 01/13/19 09:54 Dose: 100 mg Metformin HCl (Glucophage -) 500 mg PO BID@0700,1630 [facility] Last Admin: 01/13/19 06:00 Dose: 500 mg - Objective Vital Signs: Vital Signs Temperature 97.8 F 01/13/19 08:56 Pulse Rate 54 L 01/13/19 08:56 Respiratory Rate 18 01/13/19 08:56 Blood Pressure 118/47 L 01/13/19 08:56 O2 Sat by Pulse Oximetry (%) 97 01/13/19 08:56 Constitutional: Yes: No Distress, Calm, Thin Neck: Yes: Supple Cardiovascular: Yes: Regular Rate and Rhythm Respiratory: Yes: Regular, Diminished, On Nasal O2 Gastrointestinal: Yes: Normal Bowel Sounds, Soft Edema: No Labs: CBC, BMP 01/10/19 11:19 01/11/19 05:30 INR, PTT INR 0.90 (0.83-1.09) 01/10/19 11:19 Problem List - Problems (1) Acute on chronic diastolic (congestive) heart failure Code(s): I50.33 - ACUTE ON CHRONIC DIASTOLIC (CONGESTIVE) HEART FAILURE (2) Hyperlipidemia Code(s): E78.5 - HYPERLIPIDEMIA, UNSPECIFIED Qualifiers: Hyperlipidemia type: pure hypercholesterolemia Qualified Code(s): E78.00 - Pure hypercholesterolemia, unspecified; E78.0 - Pure hypercholesterolemia (3) Type 2 diabetes mellitus Code(s): E11.9 - TYPE 2 DIABETES MELLITUS WITHOUT COMPLICATIONS Qualifiers: Diabetes mellitus oysterman insulin use: without oysterman use (4) Hypertensive cardiomyopathy Code(s): I11.9 - HYPERTENSIVE HEART DISEASE WITHOUT HEART FAILURE; I43 - CARDIOMYOPATHY IN DISEASES CLASSIFIED ELSEWHERE Qualifiers: Heart failure presence: with heart failure Qualified Code(s): I11.0 - Hypertensive heart disease with heart failure; I43 - Cardiomyopathy in diseases classified elsewhere Assessment/Plan 01/11/2019 Echocardiogram: Normal LV and RV size and fxn LVEF 70%, tr-mild MR RVSP 65 mmHg 01/12/[address]: Diffuse, bilateral patchy ground glass opacities c/w congestion, do not suspect infectious/inflammatory etiologies 1. Acute on chronic diastolic heart failure with pulm HTN resolving 2. HTN cardiomyopathy 3. Hyperlipidemia 4. Type 2 DM P:1. Oral diuresis (Lasix 20 qd) with monitor diuretic response, renal fxn and electrolytes 2. Continue losartan 100 qd, carvedilol 12.5 bid, Lipitor 10 qhd 3. D/c planning with f/u in office
--- NOTE | 2019-01-13 12:55 | PN ---
Progress Note (short form) - Note Progress Note: PULMONARY Denies shortness of breath or chest pain. No fevers or chills. No cough. CT chest reviewed, showing ground glass opacities consistent with pulmonary vascular congestion. Vital Signs Period Temp Pulse Resp BP Sys/[place] Pulse Ox Last 24 Hr 97.8 F-98.6 F 53-66 18-20 110-133/41-50 97-97 Gen: NAD at rest Heart: RRR Lung: decreased breath sounds at the bases Abd: soft, nontender Ext: no edema CBC, BMP 01/10/19 11:19 01/11/19 05:30 Active Medications Atorvastatin Calcium (Lipitor -) 10 mg PO HS [facility] Last Admin: 01/12/19 21:07 Dose: 10 mg Carvedilol (Coreg -) 12.5 mg PO BID [facility] Last Admin: 01/13/19 09:55 Dose: 12.5 mg Furosemide (Lasix -) 20 mg PO DAILY [facility] Last Admin: 01/13/19 09:55 Dose: 20 mg Heparin Sodium (Porcine) (Heparin -) 5,000 unit SQ BID [facility] Last Admin: 01/13/19 09:55 Dose: 5,000 unit Losartan Potassium (Cozaar -) 100 mg PO DAILY [facility] Last Admin: 01/13/19 09:54 Dose: 100 mg Metformin HCl (Glucophage -) 500 mg PO BID@0700,1630 [facility] Last Admin: 01/13/19 06:00 Dose: 500 mg A/P Acute on Chronic Diastolic Heart Failure Pulmonary HTN HTN DM Hyperlipidemia - continue lasix - monitor urine output, creatinine - CT chest reviewed, do not suspect acute infectious process - DVT prophylaxis - can discharge home from pulmonary standpoint
[2019-01-13 15:07] VITALS: BP 124/58; TEMP 98.3
--- NOTE | 2019-01-13 17:04 | DS ---
Physical Examination Vital Signs: Vital Signs Temperature 98.3 F 01/13/19 14:00 Pulse Rate 54 L 01/13/19 14:00 Respiratory Rate 18 01/13/19 14:00 Blood Pressure 124/58 L 01/13/19 14:00 O2 Sat by Pulse Oximetry (%) 97 01/13/19 08:56 Constitutional: Yes: No Distress HENT: Yes: Atraumatic Neck: Yes: Supple Cardiovascular: Yes: Regular Rate and Rhythm Respiratory: Yes: CTA Bilaterally Gastrointestinal: Yes: Normal Bowel Sounds Extremities: Yes: WNL Edema: No Neurological: Yes: Alert, Oriented Labs: CBC, BMP 01/10/19 11:19 01/11/19 05:30 Discharge Summary Reason For Visit: SHORTNESS OF BREATH Current Active Problems Acute hypoxemic respiratory failure (Acute) Acute on chronic diastolic (congestive) heart failure (Acute) HTN (hypertension) (Acute) Hyperlipidemia (Acute) Hypertensive cardiomyopathy (Acute) Type 2 diabetes mellitus (Acute) Condition: Stable - Instructions Referrals: Lakhwinder Stanley MD [Staff Physician] - - Home Medications Comprehensive Discharge Medication List: Ambulatory Orders Amlodipine Besylate [Norvasc -] 5 mg PO DAILY 01/10/19 Atorvastatin Calcium [Lipitor] 10 mg PO HS 01/10/19 Carvedilol [Coreg -] 25 mg PO BID 01/10/19 Losartan Potassium [Cozaar] 125 mg PO DAILY 01/10/19 Metformin HCl [Glucophage] 500 mg PO BID 01/10/19 Furosemide [Lasix -] 20 mg PO DAILY #30 tablet 01/11/19 dc
--- NOTE | 2019-01-13 17:25 | CON.ID ---
Consult - Past Medical History Cardio/Vascular: Yes: HTN, Hyperlipdemia Endocrine: Yes: Diabetes Mellitus - Alcohol/Substance Use Hx Alcohol Use: No - Smoking History Smoking history: Never smoked Have you smoked in the past 12 months: No Home Medications - Allergies Allergies/Adverse Reactions: Allergies Allergy/AdvReac Type Severity Reaction Status Date / Time No Known Allergies Allergy Verified 01/10/19 10:10 - Home Medications Home Medications: Ambulatory Orders Amlodipine Besylate [Norvasc -] 5 mg PO DAILY 01/10/19 Atorvastatin Calcium [Lipitor] 10 mg PO HS 01/10/19 Carvedilol [Coreg -] 25 mg PO BID 01/10/19 Losartan Potassium [Cozaar] 125 mg PO DAILY 01/10/19 Metformin HCl [Glucophage] 500 mg PO BID 01/10/19 Furosemide [Lasix -] 20 mg PO DAILY #30 tablet 01/11/19 Physical Exam Vital Signs: Vital Signs Temperature 98.3 F 01/13/19 14:00 Pulse Rate 54 L 01/13/19 14:00 Respiratory Rate 18 01/13/19 14:00 Blood Pressure 124/58 L 01/13/19 14:00 O2 Sat by Pulse Oximetry (%) 97 01/13/19 08:56 Labs: CBC, BMP 01/10/19 11:19 01/11/19 05:30
== END 2019-01-13 18:42 | disposition home or self-care (01) | DRG 291 ==
LOC: JER 09:56 → JERBED 12:07 → J4S 01-11 06:12
PROVIDERS: ADMIT Internal Medicine; ATTEND Internal Medicine
DX: I11.0 Hypertensive heart disease with heart failure (principal); J96.01 Acute respiratory failure with hypoxia; I50.33 Acute on chronic diastolic (congestive) heart failure; I43 Cardiomyopathy in diseases classified elsewhere; I27.20 Pulmonary hypertension, unspecified; E11.9 Type 2 diabetes mellitus without complications; Z79.84 Long term (current) use of oral hypoglycemic drugs; E78.5 Hyperlipidemia, unspecified
CPT/HCPCS: 36415; 71045-TC-FY; 71250-TC; 80048; 80053; 80061; 82962; 83036; 83721; 83880; 84443; 84484; 85025; 85610; 93005; 93010; 93306-TC; 94761; 99284-25; J1644

== ENCOUNTER 2019-10-16 03:51 | Inpatient (IN) | payer OTHER ==
--- NOTE | 2019-10-16 04:19 | PDOC ---
History of Present Illness - General Chief Complaint: Shortness of Breath Stated Complaint: DIFFICULTY BREATHING Time Seen by Provider: 10/16/19 04:19 History Source: Patient Exam Limitations: No Limitations - History of Present Illness Initial Comments: 10/16/19 04:20 79yF HTN, HLD, NIDDM, HFpEF presenting w 3d white productive cough, SOB, BLE edema. Symptoms not exertion/position related. Takes unknown dose of lasix BID, didnt take any pills today. Did not take any additional OTC meds for symptoms. Denies chest pain, fever, nausea/vomiting, nasal congestion, ABD swelling/pain. Was admitted for new CHF workup in 01/10/19, normal EF on echo. Social Science Analyst Dr Lakhwinder Stanley Past History - Past Medical History Allergies/Adverse Reactions: Allergies Allergy/AdvReac Type Severity Reaction Status Date / Time No Known Allergies Allergy Verified 10/16/19 04:05 Home Medications: Ambulatory Orders Amlodipine Besylate [Norvasc -] 5 mg PO DAILY 01/10/19 Atorvastatin Calcium [Lipitor] 10 mg PO HS 01/10/19 Carvedilol [Coreg -] 25 mg PO BID 01/10/19 Losartan Potassium [Cozaar] 125 mg PO DAILY 01/10/19 Metformin HCl [Glucophage] 500 mg PO BID 01/10/19 Furosemide [Lasix -] 20 mg PO DAILY #30 tablet 01/11/19 COPD: No Diabetes: Yes HTN: Yes Hypercholesterolemia: Yes - Psycho Social/Smoking Cessation Hx Smoking History: Never smoked Have you smoked in the past 12 months: No Hx Alcohol Use: No Drug/Substance Use Hx: No Substance Use Type: None Review of Systems - Review of Systems Constitutional: No: Chills, Fever HEENTM: No: Eye Pain, Nose Pain, Nose Congestion, Throat Pain Respiratory: Yes: Cough, Shortness of Breath Cardiac (ROS): No: Chest Pain, Palpitations, Syncope ABD/GI: No: Abdominal Distended, Constipated, Diarrhea, Nausea, Vomiting : No: Burning, Dysuria, Discharge, Hematuria Musculoskeletal: No: Back Pain, Joint Pain Integumentary: No: Bruising, Flushing, Lesions Neurological: No: Headache, Seizure, Tingling Psychiatric: No: Anxiety, Depression, Stressors Endocrine: No: Excessive Sweating, Flushing, Intolerance to Cold, Intolerance to Heat Hematologic/Lymphatic: No: Anemia, Blood Clots *Physical Exam - Vital Signs Last Vital Signs Temp Pulse Resp BP Pulse Ox 97.7 F 52 L 24 H 123/49 L 81 L 10/16/19 04:02 10/16/19 04:02 10/16/19 04:02 10/16/19 04:02 10/16/19 04:02 - Physical Exam General Appearance: Yes: Nourished, Appropriately Dressed, Mild Distress HEENT: positive: EOMI, LEONARDO, Normal Voice, Hearing Grossly Normal. negative: Scleral Icterus (R), Scleral Icterus (L), Rhinorrhea Respiratory/Chest: positive: Crackles (murphy). negative: Chest Tender, Respiratory Distress, Accessory Muscle Use, Labored Respiration, Rhonchi, Stridor, Wheezing Cardiovascular: positive: Regular Rhythm, S1, S2, Bradycardia, Systolic Murmur Gastrointestinal/Abdominal: positive: Normal Bowel Sounds, Flat, Soft. negative : Tender, Organomegaly Extremity: positive: Swelling (+2 murphy up to mid calf) Integumentary: positive: Normal Color Neurologic: positive: boat motor mechanic II-XII NML intact, Fully Oriented, Alert, Normal Response, Responsive. negative: Sensory Deficit, Confused, Disoriented ED Treatment Course - LABORATORY CBC & Chemistry Diagram: 10/16/19 05:12 10/16/19 05:12 Medical Decision Making - Medical Decision Making 10/16/19 04:38 EKG showed sinus bradycardia, HR 53, QTc 407, no ST changes, unchanged vs CXR basilar infiltrates, no focal consolidation, cardiomegaly --- 79yF HTN, HLD, NIDDM, HFpEF presenting w 3d white productive cough, SOB, BLE edema d/t CHF exacerbation (BLE swelling). Also has ANDREW Cr 2.9, pending UA and hyperkalemia 6.4 (no EKG changes). Low concern for ACS (NSR EKG, neg trop) vs PNA (normal WBC, afebrile, no focal consolidation CXR) Started 5L non rebreather for O2sat low 80s. Given kayexalate, insulin/D50 Consulted Dr Lor linares for hyperk - waiting for call back. Admitted tele Dr Barr for CHF exacerbation, ANDREW, hyperkalemia, acute respiratory failure PCP Dr Ludy Magana? [facility] - not [facility] Discharge - Discharge Information Problems reviewed: Yes Clinical Impression/Diagnosis: ANDREW (acute kidney injury), Hyperkalemia CHF exacerbation Qualifiers: Heart failure type: unspecified Qualified Code(s): I50.9 - Heart failure, unspecified Acute respiratory failure Qualifiers: Respiratory failure complication: unspecified whether with hypoxia or hypercapnia Qualified Code(s): J96.00 - Acute respiratory failure, unspecified whether with hypoxia or hypercapnia Condition: Improved - Follow up/Referral Referrals: ON STAFF,NOT [Primary Care Provider] - - Patient Discharge Instructions - Post Discharge Activity
[2019-10-16 05:32] LABS: BASO % 0.2 % (0-2.0); HEMATOCRIT 35.3 % (32.4-45.2); HEMOGLOBIN 10.9 GM/dL (10.7-15.3); MCH 20.6 pg (25.7-33.7); MCHC 30.9 g/dl (32.0-36.0); MEAN CELL VOLUME 66.6 fl (80-96); MEAN PLT VOLUME 8.6 fl (7.5-11.1); NEUT % 80.8 % (42.8-82.8); PLATELET COUNT 249 K/MM3 (134-434); RDW 16.2 % (11.6-15.6); WHITE BLOOD COUNT 7.8 K/mm3 (4.0-10.0)
[2019-10-16 06:20] LABS: ALBUMIN 3.6 g/dl (3.4-5.0); BILIRUBIN,TOTAL 0.3 mg/dL (0.2-1); CALCIUM 8.5 mg/dL (8.5-10.1); CREATININE 2.9 mg/dL (0.55-1.3); N-TERMINAL BNP 5086.7 pg/ml (5-450); TOT PROT 7.3 g/dl (6.4-8.2)
[2019-10-16 06:21] LABS: BLOOD UREA NITROGEN 111.5 mg/dL (7-18); POTASSIUM 6.4 mmol/L (3.5-5.1)
[2019-10-16] MEDS ORDERED: SODIUM POLYSTYRENE SULFONATE 15 GM/60 ML BOTTLE PO ONE (06:38)
[2019-10-16] MEDS ORDERED: SODIUM POLYSTYRENE SULFONATE 15 GM/60 ML BOTTLE ONE (07:10)
--- NOTE | 2019-10-16 07:14 | PDOC ---
Attending Attestation - Resident Resident Name: EvIsmael - ED Attending Attestation I have performed the following: I have examined & evaluated the patient, The case was reviewed & discussed with the resident, I agree w/resident's findings & plan - HPI HPI: 10/16/19 06:57 Pt with SOB and decreased appetite and barely any urine output x 3 days. Now SOB and weak. - Physicial Exam PE: 10/16/19 06:57 Pitting edema; +rales in her lungs Heart RRR abd soft NT ND afebrile - Medical Decision Making 10/16/19 06:58 Pt will be admitted She has been signed out to the day team, who will contact the AM hospitalists
[2019-10-16] MEDS ORDERED: DEXTROSE 50%-WATER - 25 GM/50 ML VIAL IVPUSH ONE (07:16)
[2019-10-16] MEDS ORDERED: INSULIN REGULAR HUMAN 100 UNITS/ML *VIAL IVPUSH ONE (07:16)
[2019-10-16] MEDS ORDERED: ALBUTEROL SO4 0.083% IH SOL 2.5 MG/3 ML VIAL.NEB. NEB ONE ×2 (07:28→07:31)
[2019-10-16] MEDS ORDERED: CALCIUM GLUCONATE 10% - 1,000 MG/10 ML VIAL IVPUSH ONE (07:28)
[2019-10-16] MEDS ORDERED: SODIUM BICARBONATE 8.4% 50 MEQ/50 ML DISP.SYRIN IVPUSH ONE (07:29)
[2019-10-16] MEDS ORDERED: SODIUM BICARBONATE 8.4% 50 MEQ/50 ML VIAL ONE (07:31)
[2019-10-16] MEDS ORDERED: CALCIUM GLUCONATE 10% - 1,000 MG/10 ML VIAL ONE (07:31)
[2019-10-16] MEDS ORDERED: DEXTROSE 50%-WATER 25 GM/50 ML DISP.SYRIN ONE (07:37)
--- NOTE | 2019-10-16 07:50 | PN ---
Teaching Attending Note Name of Resident: Christopher Lopez ATTENDING PHYSICIAN STATEMENT I saw and evaluated the patient. I reviewed the resident's note and discussed the case with the resident. I agree with the resident's findings and plan as documented. Seen and examined; please see resident note for further historical information. I personally verified all ansari historical information and exam findings. Personally interpreted all imaging and diagnostics and reviewed appropriate consults. I reviewed all labs and vital signs as per resident note and EMR as documented. I agree with the above assessment and plan unless supplemented by myself in the following. ER spoke with Dr. Horowitz last night, no emergent dialysis necessary. Repeat BMP with improved potassium, family updated by resident team and myself. Patient was on antibiotics several days ago for suspected upper respiratory tract infection, nobody in the family knows the name of the antibiotic but we will call to the pharmacy to obtain it. Shortness of breath did not actually improve with outpatient antibiotic therapy. Patient's family denies any history of issues with her kidneys, they deny any history of heart failure or any ongoing follow-up with cardiology. They deny any medication changes to her chronic regimen aside from the antibiotic that was recent. Past medical, past surgical, family, and social history as are per the resident note. Reviewed and agreed with 10 item review of systems negative aside from history of present illness VS, labs, imaging reviewed NAD, AAO, resting comfortably in bed. RRR s1/2 no mgr Normal muscle tone, moves all 5 extremities with normal apparent strength Neck is supple, trachea midline, no yamileth LN Lungs CTAB with sym expansion NT ND +BS no yamileth organomegaly CN2-12 wnl; no FND NC AT EOMI PERRLA Normal mood, appropriate behavior, euthymic affect No skin breakdown or rashes noted Chest x-ray with right base changes that could be consistent with infiltrate versus atelectasis Elevated BNP likely secondary to renal failure but with concurrent respiratory failure we will of course obtain echocardiogram. Labs reviewed, displays high potassium of 6.4, sodium of 131, BUN 111, creatinine 2.9 Assessment plan: Patient presents for acute renal failure, nephrology has been consulted. They also have acute respiratory failure and are pending ABG. They are altered and critically ill. Problems include: -Acute respiratory failure secondary to pneumonia versus fluid overload, elevated BNP with right base changes, CAP coverage with potential aspiration coverage so Zosyn plus azt vs doxycycline given QTC, echo pending, follow-up cultures. Check flu, sputum -Sepsis secondary to potential pneumonia -Relative bradycardia, still in the 50s, which is not technically bradycardic though the EKG machine attempts treated as such. Continue to monitor on telemetry. -Acute renal failure with hyperkalemia; Hyperkalemia is resolved. The etiology of the renal failure appears to be secondary to potential antibiotic use like of precipitated nephrotoxicity versus another occult process. Following up on the urine electrolytes, following up on repeat BMPs. Monitor urine output. -Acute hyponatremia; Check serum and urine osmolarity. She does not appear to be having symptoms secondary to this issue w/ respect to her neurologic status -Altered mental status likely secondary to toxic metabolic encephalopathy due uremia -Microcytosis without anemia Full Code
--- NOTE | 2019-10-16 08:15 | HP ---
CHIEF COMPLAINT: shortness of breath PCP: Dr. Zambrano HISTORY OF PRESENT ILLNESS: History obtained with assistance of daughter ([facility] [phone]) at bedside Patient is a 79 year old female with history of hypertension, hyperlipidemia, HFpEf, noninsulin dependent diabetes mellitus, presents with complaint of shortness of breath. Endorses that she had flu- like symptoms last week, and recently completed approx four days of antibiotic course (Clarithromycin). Patient endorses diminished appetite over the past week. Shortness of breath increased acutely this morning prompting ED presentation. Denies prior cardiac workup. Denies history of necrological disease. ER course was notable for: (1) Chest radiograph reveals (2) BNP 111/ Cr 2.9 (baseline 1.0) (3) Recent Travel: Denies PAST MEDICAL HISTORY: hypertension, hyperlipidemia, HFpEf, noninsulin dependent diabetes mellitus PAST SURGICAL HISTORY: denies Social History: Smoking: Denies Alcohol: Denies Drugs: Denies Allergies No Known Allergies Allergy (Verified 10/16/19 04:05) HOME MEDICATIONS: Home Medications Medication Instructions Recorded Amlodipine Besylate [Norvasc -] 5 mg PO DAILY 01/10/19 Atorvastatin Calcium [Lipitor] 10 mg PO HS 01/10/19 Carvedilol [Coreg -] 25 mg PO BID 01/10/19 Losartan Potassium [Cozaar] 125 mg PO DAILY 01/10/19 Metformin HCl [Glucophage] 500 mg PO BID 01/10/19 Furosemide [Lasix -] 20 mg PO DAILY #30 tablet 01/11/19 REVIEW OF SYSTEMS 10 system review of systems obtained; As per HPI. PHYSICAL EXAMINATION Vital Signs - 24 hr 10/16/19 10/16/19 04:02 05:00 Temperature 97.7 F Pulse Rate 52 L 97 H Respiratory 24 H Rate Blood Pressure 123/49 L O2 Sat by Pulse 81 L Oximetry (%) GENERAL: The patient is awake, alert, and fully oriented, in no acute distress. HEAD: Normocephalic, atraumatic. EYES: PERRL, extraocular movements intact, sclera anicteric, conjunctiva clear. ENT: Oropharynx clear, without erythema or exudates. Moist mucous membranes. NECK: Trachea midline, full range of motion. Supple without lymphadenopathy. LUNGS: Good inspiratory effort, and air entry bilaterally. Coarse rhonchi and crackles auscultated bilateral lower lobes. Breath sounds equal, clear to auscultation bilaterally. No wheezes, no crackles. No accessory muscle use. HEART: Regular rate and rhythm. S1, S2 without murmur, rub or gallop. ABDOMEN: Soft, nondistended, nontender to light and deep palpation x4 quadrants. No rebound tenderness, no guarding. Normoactive bowel sounds x4 quadrants. No hepatosplenomegaly, no masses appreciated. EXTREMITIES: 2+ radial, dorsalis pedis pulses bilaterally. Warm, well-perfused. Trace lower extremity edema bilaterally. NEUROLOGICAL: Cranial nerves II through XII grossly intact. Normal speech. No gross focal deficits. PSYCH: Normal mood, normal affect upon my encounter. SKIN: Warm, dry. Laboratory Results - last 24 hr 10/16/19 10/16/19 10/16/19 05:12 05:12 05:12 WBC 7.8 RBC 5.30 H Hgb 10.9 Hct 35.3 MCV 66.6 L MCH 20.6 L MCHC 30.9 L RDW 16.2 H Plt Count 249 MPV 8.6 D Absolute Neuts (auto) 6.3 Neutrophils % 80.8 Lymphocytes % 12.0 D Monocytes % 7.0 Eosinophils % 0.0 D Basophils % 0.2 Nucleated RBC % 0 Sodium 131 L Potassium 6.4 H* Chloride 100 Carbon Dioxide 23 Anion Gap 8 BUN 111.5 H* Creatinine 2.9 H Est GFR (CKD-EPI)AfAm 17.13 Est GFR (CKD-EPI)NonAf 14.78 Random Glucose 152 H Calcium 8.5 Total Bilirubin 0.3 AST 15 ALT 20 Alkaline Phosphatase 59 Creatine Kinase 40 Troponin I < 0.02 B-Natriuretic Peptide 5086.7 H Total Protein 7.3 Albumin 3.6 ASSESSMENT/PLAN: Patient is a 79 year old female with history of hypertension, hyperlipidemia, HFpEf, noninsulin dependent diabetes mellitus, presents with complaint of shortness of breath. Acute hypoxic respiratory failure secondary to fluid overload vs. community acquired pneumonia -Chest radiograph reveals -BNP 5086.7 -Currently saturating well on 4L nasal canula. -Follow influenza A/B swab, urine for legionella antigen, viral panel -Follow cardiac transthoracic ECHO to evaluate for wall motion abnormalities. prior ECHO from 01/2019 revealed EF 70%. Acute renal failure -BUN 111/ Cr 2.9 (baseline 1.0) -Nephrology recommendations (Dr. Horowitz) appreciated -Blevins catheter placed. Follow intake, and output; currently draining clear yellow urine. -Follow renal, bladder US Hyperkalemia -Potassium 6.4 ;EKG without acute changes -Insulin, D50,Calcium Gluconate, and Kayexalate administered in ED -Repeat potassium at 4.9. Follow BMP -Nephrology recommendations (Dr. Horowitz) appreciated Hypertension -Holding home Losartan- HCTZ in setting of ANDREW -Continue Amodipine 10mg PO daily -Carvedilol 12.5mg PO daily, and 6.25mg PO HS. Hyperlipidemia -Continue home Atorvastatin Diabetes mellitus -Holding home metformin -Follow HbA1c -Insulin sliding scale ACHS -Fingerstick blood glucose ACHS FEN -No IV fluids indicated -Hyperkalemia; resolved. Follow BMP -Renal diet (sodium, diabetic modification) Prophylaxis -SCDs bilateral lower extremities Disposition -Admit to Telemetry floor. Full Code. Visit type - Emergency Visit Emergency Visit: Yes ED Registration Date: 10/16/19 Care time: The patient presented to the Emergency Department on the above date and was hospitalized for further evaluation of their emergent condition. - New Patient This patient is new to me today: Yes Date on this admission: 10/16/19 - Critical Care Critical Care patient: No ATTENDING PHYSICIAN STATEMENT I saw and evaluated the patient. I reviewed the resident's note and discussed the case with the resident. I agree with the resident's findings and plan as documented. SUBJECTIVE: OBJECTIVE: ASSESSMENT AND PLAN:
--- NOTE | 2019-10-16 08:29 | EKG ---
Test Reason : Blood Pressure : / mmHG Vent. Rate : 053 BPM Atrial Rate : 053 BPM P-R Int : 154 ms QRS Dur : 078 ms QT Int : 434 ms P-R-T Axes : 044 076 034 degrees QTc Int : 407 ms SINUS BRADYCARDIA CANNOT RULE OUT ANTERIOR INFARCT , AGE UNDETERMINED ABNORMAL ECG WHEN COMPARED WITH ECG OF 12-JAN-2019 03:17, NO SIGNIFICANT CHANGE WAS FOUND Confirmed by TAJ TYELR, ANDREA ([id number]) on 10/16/2019 8:28:55 AM Referred By: Confirmed By:ANDREA VANG MD
[2019-10-16 09:10] LABS: MAGNESIUM 2.9 mg/dL (1.8-2.4); PHOSPHOROUS 5.9 mg/dL (2.5-4.9)
[2019-10-16 09:24] LABS: EPI CELLS 33.3 /HPF (0-5/HPF); HYALINE CASTS 82 /lpf (0-8); URINE APPEARANCE CLOUDY; URINE BACTERIA 44.9 /hpf (NEGATIVE); URINE BILIRUBIN NEGATIVE (NEGATIVE); URINE COLOR YELLOW; URINE GLUCOSE (UA) TRACE (NEGATIVE); URINE KETONE NEGATIVE (NEGATIVE); URINE LEUK ESTERASE 2+ (NEGATIVE); URINE NITRITE NEGATIVE (NEGATIVE); URINE PROTEIN NEGATIVE (NEGATIVE); URINE RBC 1 /hpf (0-4); URINE WBC 6 /hpf (0-5)
[2019-10-16] MEDS: AZITHROMYCIN IVPB 500 MG/250 ML BAG IVPB SCH (10:30)
[2019-10-16] MEDS ORDERED: CEFTRIAXONE 1 GM/50 ML BAG ONE (10:33)
[2019-10-16] MEDS ORDERED: AZITHROMYCIN IVPB 500 MG/250 ML BAG IVPB ONE (10:33)
[2019-10-16] MEDS: CEFTRIAXONE 1 GM in DEXTROSE 5%-WATER - 50 ML IVPB SCH (11:12)
[2019-10-16 11:14] LABS: PHOSPHOROUS 6.6 mg/dL (2.5-4.9)
[2019-10-16 11:15] LABS: CALCIUM 9.3 mg/dL (8.5-10.1); CREATININE 2.8 mg/dL (0.55-1.3); POTASSIUM 4.9 mmol/L (3.5-5.1)
[2019-10-16 11:17] LABS: BLOOD UREA NITROGEN 106.4 mg/dL (7-18)
[2019-10-16 11:43] LABS: ANISOCYTOSIS 2+; MACROCYTOSIS 0; PLATELET ESTIMATE NORMAL
[2019-10-16] MEDS ORDERED: FUROSEMIDE 40 MG TABLET (FP) PO ONE ×2 (14:45→16:45)
--- NOTE | 2019-10-16 16:01 | CONSULT ---
Consult Consult Specialty:: Nephrology Reason for Consultation:: andrew and hyperkalemia - History of Present Illness Chief Complaint: shortness of breath History of Present Illness: Pt is a 79 year old female with pmhx of htn, chf, hld, and dm who presents with shortness of breath and malaise. She was found to be in acuter renal failure and found to be hyperkalemic. She was on losartan at home. Potassium was treated medically and improved. Pt does not have history of ckd and her baseline chemical laboratory scientist is about 1. Her daughter is at bedside who assisted with history. She also had outpt labs. Potassium was 5 at the time. - History Source History Provided By: Patient, Medical Record - Past Medical History Cardio/Vascular: Yes: CHF, HTN, Hyperlipdemia Endocrine: Yes: Diabetes Mellitus - Alcohol/Substance Use Hx Alcohol Use: No - Smoking History Smoking history: Never smoked Have you smoked in the past 12 months: No Home Medications - Allergies Allergies/Adverse Reactions: Allergies Allergy/AdvReac Type Severity Reaction Status Date / Time No Known Allergies Allergy Verified 10/16/19 04:05 - Home Medications Home Medications: Ambulatory Orders Amlodipine Besylate [Norvasc -] 10 mg PO DAILY 01/10/19 Atorvastatin Calcium [Lipitor] 10 mg PO HS 01/10/19 Metformin HCl [Glucophage] 500 mg PO BID 01/10/19 Furosemide [Lasix -] 20 mg PO DAILY #30 tablet 01/11/19 Carvedilol 6.25 mg PO HS 10/16/19 Carvedilol 12.5 mg PO DAILY 10/16/19 Losartan/Hydrochlorothiazide [Losartan-Hctz 100-25 mg Tab] 1 tab PO DAILY Family Medical History Family History: Denies Review of Systems - Review of Systems Constitutional: reports: Malaise Eyes: reports: No Symptoms HENT: reports: No Symptoms Neck: reports: No Symptoms Cardiovascular: reports: Edema, Shortness of Breath Respiratory: reports: SOB Genitourinary: reports: No Symptoms Musculoskeletal: reports: Muscle Weakness Endocrine: reports: No Symptoms Physical Exam Vital Signs: Vital Signs Temperature 98.1 F 10/16/19 07:00 Pulse Rate 65 10/16/19 07:00 Respiratory Rate 18 10/16/19 07:00 Blood Pressure 100/65 10/16/19 07:00 O2 Sat by Pulse Oximetry (%) 98 10/16/19 07:00 Constitutional: Yes: Calm Eyes: Yes: Conjunctiva Clear HENT: Yes: Atraumatic Neck: Yes: Supple Cardiovascular: Yes: S1, S2 Respiratory: Yes: On Nasal O2, Rhonchi Gastrointestinal: Yes: Soft Renal/: Yes: Blevins Present Musculoskeletal: Yes: Muscle Weakness Edema: Yes Edema: LLE: 1+, RLE: 1+ Neurological: Yes: Oriented Psychiatric: Yes: Oriented Labs: CBC, BMP 10/16/19 05:12 10/16/19 10:35 Laboratory Tests 10/16/19 10/16/19 10/16/19 05:12 08:18 10:35 Sodium 131 L 136 Potassium 6.4 H* 4.9 BUN 111.5 H* 106.4 H* Creatinine 2.9 H 2.8 H B-Natriuretic Peptide 5086.7 H Urine Protein Negative Urine Blood 2+ H Imaging - Results Chest X-ray: Report Reviewed Cat Scan: Report Reviewed Problem List - Problems (1) ANDREW (acute kidney injury) Code(s): N17.9 - ACUTE KIDNEY FAILURE, UNSPECIFIED (2) CHF exacerbation Code(s): I50.9 - HEART FAILURE, UNSPECIFIED Qualifiers: Heart failure type: unspecified Qualified Code(s): I50.9 - Heart failure, unspecified (3) Hyperkalemia Code(s): E87.5 - HYPERKALEMIA Assessment/Plan Current Medications Generic Name Dose Route Start Last Admin Trade Name Freq PRN Reason Stop Dose Admin Amlodipine Besylate 10 mg 10/17/19 10:00 Norvasc - PO DAILY [facility] Atorvastatin Calcium 10 mg 10/16/19 22:00 Lipitor - PO HS RITU Carvedilol 6.25 mg 10/16/19 22:00 Coreg - PO HS RITU Carvedilol 12.5 mg 10/17/19 10:00 Coreg - PO DAILY RITU Azithromycin 500 mg in 250 mls @ 250 mls/hr 10/16/19 10:00 10/16/19 10:30 Zithromax 500mg Ivpb (Pre-Docked) IVPB 250 mls/hr DAILY RITU Administration Ceftriaxone Sodium 1 gm/ 50 mls @ 100 mls/hr 10/16/19 10:00 10/16/19 11:12 Dextrose IVPB 100 mls/hr DAILY RITU Administration Protocol Insulin Aspart 1 vial 10/16/19 16:30 Novolog Vial Sliding Scale - SQ ACHS RITU Protocol Impression 1. ANDREW 2. hyperkalemia 3. CHF 4. htn 5. DM 6. UTI Plan - potassium treated medically - stop arb for now - hold metformin - will give a dose of lasix - repeat labs in am - check lactic acid - cont abx - follow cultures
[2019-10-16] MEDS ORDERED: FUROSEMIDE 40 MG TABLET (FP) ONE (17:02)
[2019-10-16] MEDS: INSULIN SLIDING SCALE (NOVOLOG) 1 VIAL SQ SCH ×2 (17:10→23:20)
--- NOTE | 2019-10-16 20:48 | CON.CARD ---
Consult Consult Specialty:: cardiology Reason for Consultation:: SOB; hyperkalemia - History of Present Illness Chief Complaint: Pt A&O; asymptomatic presently. History of Present Illness: 79yr old woman with PMHx HTN, HLD, NIDDM, diastolic CHF with severe pulmonary HTN (01/2019 ECHO), now presenting w 3d white productive cough, SOB, BLE edema. Symptoms not exertion/position related. Takes unknown dose of lasix BID, ? losartan, didnt take any pills today. Did not take any additional OTC meds for symptoms. Denies chest pain, fever, nausea/vomiting, nasal congestion, ABD swelling/pain. Was admitted for new CHF workup in 01/10/19. Today, found hyperkalemic, with ANDREW. Regional Operations Manager: Dr Lakhwinder Stanley - History Source History Provided By: Patient, Medical Record Limitations to Obtaining History: No Limitations - Past Medical History Cardio/Vascular: Yes: CHF (diastolic), HTN, Hyperlipdemia Endocrine: Yes: Diabetes Mellitus - Alcohol/Substance Use Hx Alcohol Use: No - Smoking History Smoking history: Never smoked Have you smoked in the past 12 months: No Home Medications - Allergies Allergies/Adverse Reactions: Allergies Allergy/AdvReac Type Severity Reaction Status Date / Time No Known Allergies Allergy Verified 10/16/19 04:05 - Home Medications Home Medications: Ambulatory Orders Amlodipine Besylate [Norvasc -] 10 mg PO DAILY 01/10/19 Atorvastatin Calcium [Lipitor] 10 mg PO HS 01/10/19 Metformin HCl [Glucophage] 500 mg PO BID 01/10/19 Furosemide [Lasix -] 20 mg PO DAILY #30 tablet 01/11/19 Carvedilol 6.25 mg PO HS 10/16/19 Carvedilol 12.5 mg PO DAILY 10/16/19 Losartan/Hydrochlorothiazide [Losartan-Hctz 100-25 mg Tab] 1 tab PO DAILY Vital Signs: Vital Signs Temperature 97.8 F 10/16/19 20:13 Pulse Rate 65 10/16/19 20:13 Respiratory Rate 20 10/16/19 20:13 Blood Pressure 115/46 L 10/16/19 20:13 O2 Sat by Pulse Oximetry (%) 95 10/16/19 20:13 - Other Data Labs, Other Data: CBC, BMP 10/16/19 05:12 01/12/20 10:35 Troponin, BNP 10/16/19 10/16/19 10/16/19 05:12 05:12 08:10 Troponin I < 0.02 < 0.02 B-Natriuretic Peptide 5086.7 H Troponin, BNP 10/16/19 10/16/19 10/16/19 05:12 05:12 08:10 Troponin I < 0.02 < 0.02 B-Natriuretic Peptide 5086.7 H Problem List - Problems (1) Severe pulmonary arterial systolic hypertension Code(s): I27.21 - SECONDARY PULMONARY ARTERIAL HYPERTENSION (2) ANDREW (acute kidney injury) Assessment/Plan: hyperkalemia resolved; continue w/u per patient care technician. Code(s): N17.9 - ACUTE KIDNEY FAILURE, UNSPECIFIED (3) Hyperkalemia Assessment/Plan: resolved; f/u renal workup. Code(s): E87.5 - HYPERKALEMIA (4) Acute on chronic diastolic (congestive) heart failure Assessment/Plan: BNP >5,000 (1,000 in January,). CT chest: ground glass; ?vascular congestion CXR: atelectasis/infiltrate. On diuretics per patient care technician (ANDREW). On carvedilol and amlodipine. F/u BUN/Cr, electrolytes, daily weight, Is and Os. On antibiotics. Code(s): I50.33 - ACUTE ON CHRONIC DIASTOLIC (CONGESTIVE) HEART FAILURE (5) HTN (hypertension) Assessment/Plan: On carvedilol and amlodipine. ARB held due to ANDREW, hyperkalemia. TNI < 0.02. EKG: sinus bradycardia; ?old anterior infarct (no significant change from 01/21) . ECHO 01/21: normal LVEF and wall thicknesses; mild MR; moderate aortic sclerosis , without significant ; severe pulmonary HTN. Code(s): I10 - ESSENTIAL (PRIMARY) HYPERTENSION Qualifiers: Hypertension type: essential hypertension Qualified Code(s): I10 - Essential (primary) hypertension (6) Hyperlipidemia Assessment/Plan: On statin. Code(s): E78.5 - HYPERLIPIDEMIA, UNSPECIFIED Qualifiers: Hyperlipidemia type: pure hypercholesterolemia Qualified Code(s): E78.00 - Pure hypercholesterolemia, unspecified; E78.0 - Pure hypercholesterolemia (7) Type 2 diabetes mellitus Code(s): E11.9 - TYPE 2 DIABETES MELLITUS WITHOUT COMPLICATIONS Qualifiers: Diabetes mellitus assisted insulin use: without termite exterminator use (8) Microcytic anemia Code(s): D50.9 - IRON DEFICIENCY ANEMIA, UNSPECIFIED (9) Sepsis Code(s): A41.9 - SEPSIS, UNSPECIFIED ORGANISM
[2019-10-16] MEDS ORDERED: CARVEDILOL 3.125 MG TABLET (FP) ONE (22:15)
[2019-10-16] MEDS ORDERED: ATORVASTATIN CA 10 MG TABLET (FP) ONE (22:15)
[2019-10-16] MEDS: ATORVASTATIN CA 10 MG TABLET (FP) PO SCH (22:26)
[2019-10-16] MEDS: CARVEDILOL 6.25 MG TABLET (FP) PO SCH (22:26)
--- NOTE | 2019-10-17 09:06 | PN ---
Progress Note, Physician History of Present Illness: Productive cough, SOB, BLE edema improving with diuresis. - Current Medication List Current Medications: Active Medications Amlodipine Besylate (Norvasc -) 10 mg PO DAILY [facility] Atorvastatin Calcium (Lipitor -) 10 mg PO HS [facility] Last Admin: 10/16/19 22:26 Dose: 10 mg Carvedilol (Coreg -) 6.25 mg PO HS [facility] Last Admin: 10/16/19 22:26 Dose: 6.25 mg Carvedilol (Coreg -) 12.5 mg PO DAILY [facility] Azithromycin (Zithromax 500mg Ivpb (Pre-Docked)) 500 mg in 250 mls @ 250 mls/ hr IVPB DAILY [facility] Last Admin: 10/16/19 10:30 Dose: 250 mls/hr Ceftriaxone Sodium 1 gm/ (Dextrose) 50 mls @ 100 mls/hr IVPB DAILY [facility]; Protocol Last Admin: 10/16/19 11:12 Dose: 100 mls/hr Insulin Aspart (Novolog Vial Sliding Scale -) 1 vial SQ ACHS [facility]; Protocol Last Admin: 10/16/19 23:20 Dose: Not Given - Objective Vital Signs: Vital Signs Temperature 98.1 F 10/17/19 06:35 Pulse Rate 74 10/17/19 06:35 Respiratory Rate 15 10/17/19 06:35 Blood Pressure 115/46 L 10/17/19 06:35 O2 Sat by Pulse Oximetry (%) 100 10/17/19 06:35 Constitutional: Yes: No Distress, Calm, Thin Neck: Yes: Supple Cardiovascular: Yes: Regular Rate and Rhythm Respiratory: Yes: Regular, Diminished, On Nasal O2 Gastrointestinal: Yes: Normal Bowel Sounds, Soft Edema: No Labs: CBC, BMP 10/16/19 05:12 10/16/19 10:35 - ....Imaging Chest X-ray: Report Reviewed (CXR) Assessment/Plan 01/11/2019 Echo: Normal LV size and fxn LVEF 70%, normal RV size and fxn, tr- mild MR RVSP 65 mmHg Problem List - Problems (1) Severe pulmonary arterial systolic hypertension Code(s): I27.21 - SECONDARY PULMONARY ARTERIAL HYPERTENSION (2) ANDREW (acute kidney injury) Assessment/Plan: hyperkalemia resolved; continue w/u per sample clerk. Code(s): N17.9 - ACUTE KIDNEY FAILURE, UNSPECIFIED (3) Hyperkalemia Assessment/Plan: resolved; f/u renal workup. Code(s): E87.5 - HYPERKALEMIA (4) Acute on chronic diastolic (congestive) heart failure Assessment/Plan: BNP >5,000 (1,000 in January,). CT chest: ground glass; ?vascular congestion CXR: atelectasis/infiltrate. IV diuresis with monitor diuretic response, renal fxn and electrolytes On carvedilol 12.5 bid and amlodipine 10 qd Repeat echo to assess ventricular and valve fxn On empiric antibiotics course Code(s): I50.33 - ACUTE ON CHRONIC DIASTOLIC (CONGESTIVE) HEART FAILURE (5) HTN (hypertension) Assessment/Plan: On carvedilol 12.5 bid and amlodipine 10 qd. ARB held due to ANDREW, hyperkalemia. TNI < 0.02. EKG: sinus bradycardia; ?old anterior infarct (no significant change from 01/21) . ECHO 01/21: normal LVEF and wall thicknesses; mild MR; moderate aortic sclerosis , without significant ; severe pulmonary HTN. Code(s): I10 - ESSENTIAL (PRIMARY) HYPERTENSION Qualifiers: Hypertension type: essential hypertension Qualified Code(s): I10 - Essential (primary) hypertension (6) Hyperlipidemia Assessment/Plan: On Lipitor 10 qhs Code(s): E78.5 - HYPERLIPIDEMIA, UNSPECIFIED Qualifiers: Hyperlipidemia type: pure hypercholesterolemia Qualified Code(s): E78.00 - Pure hypercholesterolemia, unspecified; E78.0 - Pure hypercholesterolemia (7) Type 2 diabetes mellitus Code(s): E11.9 - TYPE 2 DIABETES MELLITUS WITHOUT COMPLICATIONS Qualifiers: Diabetes mellitus long wall mining machine helper insulin use: without long wall mining machine helper use (8) Microcytic anemia Code(s): D50.9 - IRON DEFICIENCY ANEMIA, UNSPECIFIED (9) Sepsis Code(s): A41.9 - SEPSIS, UNSPECIFIED ORGANISM
--- NOTE | 2019-10-17 11:12 | PN ---
Teaching Attending Note Name of Resident: Paco Rinaldi ATTENDING PHYSICIAN STATEMENT I saw and evaluated the patient. I reviewed the resident's note and discussed the case with the resident. I agree with the resident's findings and plan as documented. SUBJECTIVE: More comfortable, improved renal function OBJECTIVE: VS labs imaging reviewed Frail, NAD, AAO HR wnl, +s1/2 CN2-12 wnl, no fnd ASSESSMENT AND PLAN: Patient presents for acute renal failure, nephrology has been consulted. They also have acute respiratory failure and are pending ABG. They are altered and critically ill. Problems include: -Acute respiratory failure secondary to pneumonia versus fluid overload, elevated BNP with right base changes, CAP coverage with potential aspiration coverage so Zosyn plus azt vs doxycycline given QTC, echo pending, follow-up cultures. Check flu, sputum -Sepsis secondary to potential pneumonia -Relative bradycardia, still in the 50s, which is not technically bradycardic though the EKG machine attempts treated as such. Continue to monitor on telemetry. -Acute renal failure with hyperkalemia; Hyperkalemia is resolved. The etiology of the renal failure appears to be secondary to potential antibiotic use like of precipitated nephrotoxicity versus another occult process. Following up on the urine electrolytes, following up on repeat BMPs. Monitor urine output. -Acute hyponatremia; Check serum and urine osmolarity. She does not appear to be having symptoms secondary to this issue w/ respect to her neurologic status -Altered mental status likely secondary to toxic metabolic encephalopathy due uremia -Microcytosis without anemia
[2019-10-17 11:49] LABS: BASO % 0.3 % (0-2.0); EOS % 0.3 % (0-4.5); HEMATOCRIT 38.4 % (32.4-45.2); LYMPH % 5.4 % (8-40); MCH 21.1 pg (25.7-33.7); MCHC 31.2 g/dl (32.0-36.0); MEAN CELL VOLUME 67.5 fl (80-96); MEAN PLT VOLUME 7.9 fl (7.5-11.1); MONO % 6.3 % (3.8-10.2); NEUT % 87.7 % (42.8-82.8); PLATELET COUNT 233 K/MM3 (134-434); RBC 5.69 M/mm3 (3.60-5.2); RDW 16.2 % (11.6-15.6); WHITE BLOOD COUNT 11.3 K/mm3 (4.0-10.0)
[2019-10-17] MEDS: AZITHROMYCIN IVPB 500 MG/250 ML BAG IVPB SCH (11:52)
[2019-10-17] MEDS: INSULIN SLIDING SCALE (NOVOLOG) 1 VIAL SQ SCH ×3 (12:09→21:36)
[2019-10-17] MEDS: CARVEDILOL 12.5 MG TABLET (FP) PO SCH (12:18)
[2019-10-17] MEDS: FUROSEMIDE 40 MG/4 ML INJECTABLE VIAL IVPUSH SCH (12:19)
[2019-10-17] MEDS: amLODIPine BESYLATE 10 MG TABLET (FP) PO SCH (12:19)
[2019-10-17 12:35] LABS: ALBUMIN 3.5 g/dl (3.4-5.0); BILIRUBIN,TOTAL 0.4 mg/dL (0.2-1); BLOOD UREA NITROGEN 80.6 mg/dL (7-18); CREATININE 1.6 mg/dL (0.55-1.3); MAGNESIUM 2.5 mg/dL (1.8-2.4); PHOSPHOROUS 5.2 mg/dL (2.5-4.9); POTASSIUM 4.2 mmol/L (3.5-5.1); TOT PROT 7.1 g/dl (6.4-8.2)
[2019-10-17] MEDS: CEFTRIAXONE 1 GM in DEXTROSE 5%-WATER - 50 ML IVPB SCH (12:52)
--- NOTE | 2019-10-17 15:02 | PN ---
Progress Note, Physician History of Present Illness: Pt seen and examined at bedside. She is awake and appears more comfortable today. - Current Medication List Current Medications: Active Medications Amlodipine Besylate (Norvasc -) 10 mg PO DAILY [facility] Last Admin: 10/17/19 12:19 Dose: 10 mg Atorvastatin Calcium (Lipitor -) 10 mg PO HS [facility] Last Admin: 10/16/19 22:26 Dose: 10 mg Carvedilol (Coreg -) 6.25 mg PO HS [facility] Last Admin: 10/16/19 22:26 Dose: 6.25 mg Carvedilol (Coreg -) 12.5 mg PO DAILY [facility] Last Admin: 10/17/19 12:18 Dose: 12.5 mg Furosemide (Lasix Injection -) 40 mg IVPUSH DAILY [facility] Last Admin: 10/17/19 12:19 Dose: 40 mg Azithromycin (Zithromax 500mg Ivpb (Pre-Docked)) 500 mg in 250 mls @ 250 mls/ hr IVPB DAILY [facility] Last Admin: 10/17/19 11:52 Dose: 250 mls/hr Ceftriaxone Sodium 1 gm/ (Dextrose) 50 mls @ 100 mls/hr IVPB DAILY [facility]; Protocol Last Admin: 10/17/19 12:52 Dose: 100 mls/hr Insulin Aspart (Novolog Vial Sliding Scale -) 1 vial SQ ACHS [facility]; Protocol Last Admin: 10/16/19 23:20 Dose: Not Given - Objective Vital Signs: Vital Signs Temperature 98.1 F 10/17/19 06:35 Pulse Rate 74 10/17/19 06:35 Respiratory Rate 15 10/17/19 06:35 Blood Pressure 115/46 L 10/17/19 06:35 O2 Sat by Pulse Oximetry (%) 100 10/17/19 06:35 Constitutional: Yes: Calm Eyes: Yes: Conjunctiva Clear HENT: Yes: Atraumatic Neck: Yes: Supple Cardiovascular: Yes: S1, S2 Respiratory: Yes: On Nasal O2, Rhonchi Gastrointestinal: Yes: Soft Genitourinary: Yes: WNL Musculoskeletal: Yes: WNL Edema: Yes Edema: LLE: Trace, RLE: Trace Neurological: Yes: Oriented Labs: CBC, BMP 10/17/19 11:35 10/17/19 11:35 Problem List - Problems (1) ANDREW (acute kidney injury) Code(s): N17.9 - ACUTE KIDNEY FAILURE, UNSPECIFIED (2) CHF exacerbation Code(s): I50.9 - HEART FAILURE, UNSPECIFIED Qualifiers: Heart failure type: unspecified Qualified Code(s): I50.9 - Heart failure, unspecified (3) Hyperkalemia Code(s): E87.5 - HYPERKALEMIA Assessment/Plan Current Medications Generic Name Dose Route Start Last Admin Trade Name Freq PRN Reason Stop Dose Admin Amlodipine Besylate 10 mg 10/17/19 10:00 10/17/19 12:19 Norvasc - PO 10 mg DAILY [facility] Administration Atorvastatin Calcium 10 mg 10/16/19 22:00 10/16/19 22:26 Lipitor - PO 10 mg HS [facility] Administration Carvedilol 6.25 mg 10/16/19 22:00 10/16/19 22:26 Coreg - PO 6.25 mg HS [facility] Administration Carvedilol 12.5 mg 10/17/19 10:00 10/17/19 12:18 Coreg - PO 12.5 mg DAILY [facility] Administration Furosemide 40 mg 10/17/19 10:00 10/17/19 12:19 Lasix Injection - IVPUSH 40 mg DAILY [facility] Administration Azithromycin 500 mg in 250 mls @ 250 mls/hr 10/16/19 10:00 10/17/19 11:52 Zithromax 500mg Ivpb (Pre-Docked) IVPB 250 mls/hr DAILY [facility] Administration Ceftriaxone Sodium 1 gm/ 50 mls @ 100 mls/hr 10/16/19 10:00 10/17/19 12:52 Dextrose IVPB 100 mls/hr DAILY [facility] Administration Protocol Insulin Aspart 1 vial 10/16/19 16:30 10/16/19 23:20 Novolog Vial Sliding Scale - SQ Not Given ACHS [facility] Protocol Laboratory Tests 10/17/19 11:35 Lactic Acid 0.8 Impression 1. ANDREW 2. hyperkalemia 3. CHF 4. htn 5. DM 6. UTI Plan - renal function is improving - cont lasix - potassium improved - hold arb for now - repeat labs in am - keep metformin on hold - cont abx - follow cultures
--- NOTE | 2019-10-17 15:55 | ECHO ---
Name: KAR LENNON O Exam:Adult Echocardiogram Study Date: 10/17/2019 02:07 PM Age: 79 yrs Height: 56 in Weight: 120 lb BSA: 1.4 m2 MMode/2D Measurements & Calculations IVSd: 0.81 cm Ao root diam: 2.2 cm LVIDd: 4.3 cm LA dimension: 3.5 cm LVIDs: 2.9 cm LVPWd: 1.1 cm LVPWs: 1.1 cm EDV(Teich): 81.6 ml ESV(Teich): 31.8 ml LVOT diam: 1.6 cm RV S Jesus: 6.3 cm/sec Doppler Measurements & Calculations MV E max jesus: 110.6 cm/sec Ao V2 max: 147.6 cm/sec MV A max jesus: 98.2 cm/sec Ao max P.0 mmHg MV E/A: 1.1 MV dec time: 0.20 sec ALLAN(V,D): 1.8 cm2 LV V1 max P.1 mmHg TR max jesus: 335.9 cm/sec LV V1 max: 132.8 cm/sec TR max P.5 mmHg PA V2 max: 111.3 cm/sec Med Peak E' Jesus: 5.8 cm/sec PA max P.0 mmHg Med E/e': 19.2 Lat Peak E' Jesus: 7.5 cm/sec Lat E/e': 14.7 Procedure A complete two-dimensional transthoracic echocardiogram was performed (2D, M-mode, Doppler and color flow Doppler). Technically limited study. Left Ventricle The left ventricle is normal in size. Left ventricular systolic function is normal. Ejection Fraction = 55- 60%. Diastolic dysfunction, Grade II (pseudonormalization pattern). No regional wall motion abnormali ties noted. Right Ventricle The right ventricle is normal size. The right ventricular systolic function is normal. Atria The left atrial size is normal. Right atrial size is normal. Mitral Valve There is mild mitral annular calcification. There is mild mitral regurgitation. Tricuspid Valve The tricuspid valve is normal in structure and function. There is moderate tricuspid regurgitation. P ulmonary artery systolic pressure is at least 60 mmHg if RA pressure is assumed 3 mmHg. Aortic Valve There is mild aortic sclerosis.;. No aortic regurgitation is present. Pulmonic Valve The pulmonic valve is not well visualized. Mild pulmonic valvular regurgitation. Great Vessels The aortic root is normal size. Pericardium/Pleura There is no pericardial effusion. Interpretation Summary Technically limited study The left ventricle is normal in size. Left ventricular systolic function is normal. No regional wall motion abnormalities noted. Ejection Fraction = 55-60%. Diastolic dysfunction, Grade II (pseudonormalization pattern). The right ventricular systolic function is normal. The left atrial size is normal. Right atrial size is normal. There is mild mitral annular calcification. There is mild mitral regurgitation. There is moderate tricuspid regurgitation. Pulmonary artery systolic pressure is at least 60 mmHg if RA pressure is assumed 3 mmHg There is mild aortic sclerosis. Mild pulmonic valvular regurgitation. There is no pericardial effusion. Lakhwinder Stanley MD 10/17/2019 03:55 PM
--- NOTE | 2019-10-17 18:16 | PN ---
Physical Exam: SUBJECTIVE: Patient seen and examined OBJECTIVE: Vital Signs Period Temp Pulse Resp BP Sys/[place] Pulse Ox Last 24 Hr 97.8 F-98.1 F 65-74 15-20 115-115/46-46 95-100 GENERAL: The patient is awake, alert, and fully oriented, in no acute distress.. EYES: PERRL, extraocular movements intact, ENT: moist mucous membranes. NECK: Trachea midline, full range of motion, supple. LUNGS: Breath sounds equal, clear to auscultation bilaterally, no wheezes, no crackles, HEART: Regular rate and rhythm, S1, S2 without murmur, rub or gallop. ABDOMEN: Soft, nontender, nondistended, normoactive bowel sounds, no guarding, EXTREMITIES: 2+ pulses, warm, well-perfused, no edema. NEUROLOGICAL: Normal speech, gait not observed. SKIN: Warm, dry, normal turgor, no rashes or lesions noted Laboratory Results - last 24 hr WBC 11.3 K/mm3 (4.0-10.0) H 10/17/19 11:35 RBC 5.69 M/mm3 (3.60-5.2) H 10/17/19 11:35 Hgb 12.0 GM/dL (10.7-15.3) 10/17/19 11:35 Hct 38.4 % (32.4-45.2) 10/17/19 11:35 MCV 67.5 fl (80-96) L 10/17/19 11:35 MCH 21.1 pg (25.7-33.7) L 10/17/19 11:35 MCHC 31.2 g/dl (32.0-36.0) L 10/17/19 11:35 RDW 16.2 % (11.6-15.6) H 10/17/19 11:35 Plt Count 233 K/MM3 (134-434) 10/17/19 11:35 MPV 7.9 fl (7.5-11.1) 10/17/19 11:35 Absolute Neuts (auto) 10.0 K/mm3 (1.5-8.0) H 10/17/19 11:35 Neutrophils % 87.7 % (42.8-82.8) H 10/17/19 11:35 Lymphocytes % 5.4 % (8-40) L D 10/17/19 11:35 Monocytes % 6.3 % (3.8-10.2) 10/17/19 11:35 Eosinophils % 0.3 % (0-4.5) D 10/17/19 11:35 Basophils % 0.3 % (0-2.0) 10/17/19 11:35 Nucleated RBC % 0 % (0-0) 10/17/19 11:35 Hypochromia 1+ 10/16/19 05:12 Platelet Estimate Normal 10/16/19 05:12 Polychromasia 1+ 10/16/19 05:12 Poikilocytosis 2+ 10/16/19 05:12 Anisocytosis 2+ 10/16/19 05:12 Microcytosis 2+ 10/16/19 05:12 Macrocytosis 0 10/16/19 05:12 ESR 17 mm/hr (0-30) 10/16/19 10:35 Retic Count 2.38 % (0.5-1.5) H 10/16/19 10:35 Sodium 139 mmol/L (136-145) 10/17/19 11:35 Potassium 4.2 mmol/L (3.5-5.1) 10/17/19 11:35 Chloride 100 mmol/L (98-107) 10/17/19 11:35 Carbon Dioxide 36 mmol/L (21-32) H 10/17/19 11:35 Anion Gap 2 MMOL/L (8-16) L 10/17/19 11:35 BUN 80.6 mg/dL (7-18) H 10/17/19 11:35 Creatinine 1.6 mg/dL (0.55-1.3) H 10/17/19 11:35 Est GFR (CKD-EPI)AfAm 35.15 10/17/19 11:35 Est GFR (CKD-EPI)NonAf 30.33 10/17/19 11:35 POC Glucometer 222 UNITS (80-120) 10/17/19 17:46 Random Glucose 135 mg/dL (74-106) H 10/17/19 11:35 Hemoglobin A1c % 6.1 % (4.2-6.3) 10/17/19 11:35 Serum Osmolality 330 mosm/kg (278-305) H 10/16/19 10:35 Lactic Acid 0.8 mmol/L (0.4-2.0) 10/17/19 11:35 Calcium 9.0 mg/dL (8.5-10.1) 10/17/19 11:35 Phosphorus 5.2 mg/dL (2.5-4.9) H 10/17/19 11:35 Magnesium 2.5 mg/dL (1.8-2.4) H 10/17/19 11:35 Total Bilirubin 0.4 mg/dL (0.2-1) 10/17/19 11:35 AST 12 U/L (15-37) L 10/17/19 11:35 ALT 17 U/L (13-61) 10/17/19 11:35 Alkaline Phosphatase 79 U/L (45-117) 10/17/19 11:35 Creatine Kinase 32 U/L (26-192) 10/16/19 08:10 Troponin I < 0.02 ng/ml (0.00-0.05) 10/16/19 08:10 C-Reactive Protein < 0.3 MG/DL (0.00-0.3) 10/16/19 08:10 B-Natriuretic Peptide 5086.7 pg/ml (5-450) H 10/16/19 05:12 Total Protein 7.1 g/dl (6.4-8.2) 10/17/19 11:35 Albumin 3.5 g/dl (3.4-5.0) 10/17/19 11:35 Active Medications Current Medications Amlodipine Besylate (Norvasc -) 10 mg PO DAILY [facility] Last Admin: 10/17/19 12:19 Dose: 10 mg Atorvastatin Calcium (Lipitor -) 10 mg PO HS [facility] Last Admin: 10/16/19 22:26 Dose: 10 mg Carvedilol (Coreg -) 6.25 mg PO HS [facility] Last Admin: 10/16/19 22:26 Dose: 6.25 mg Carvedilol (Coreg -) 12.5 mg PO DAILY [facility] Last Admin: 10/17/19 12:18 Dose: 12.5 mg Furosemide (Lasix Injection -) 40 mg IVPUSH DAILY [facility] Last Admin: 10/17/19 12:19 Dose: 40 mg Azithromycin (Zithromax 500mg Ivpb (Pre-Docked)) 500 mg in 250 mls @ 250 mls/ hr IVPB DAILY [facility] Last Admin: 10/17/19 11:52 Dose: 250 mls/hr Ceftriaxone Sodium 1 gm/ (Dextrose) 50 mls @ 100 mls/hr IVPB DAILY [facility]; Protocol Last Admin: 10/17/19 12:52 Dose: 100 mls/hr Insulin Aspart (Novolog Vial Sliding Scale -) 1 vial SQ ACHS [facility]; Protocol Last Admin: 10/16/19 23:20 Dose: Not Given Microbiology 10/16/19 08:18 Urine - Urine [place] Urine Culture - Preliminary Lactose Fermenting Neg Bacilli ASSESSMENT/PLAN: 79 year old female with history of hypertension, hyperlipidemia, HFpEf, noninsulin dependent diabetes mellitus, presents with complaint of shortness of breath Acute hypoxic respiratory failure secondary to fluid overload vs. community acquired pneumonia CXR- some congestive changes, minimal fluid/atelectic changes on right base Cont Azithromycin and rocephin Lasix 40 mg daily as per cardio #Acute renal failure Follow renal, bladder US BUN 80.6 and Cre 1.6- improving #Hyperkalemia EKG without acute changes Potassium 4.2 now #Hypertension Holding home Losartan- HCTZ in setting of ANDREW- renal consult appreciated Amodipine 10mg PO daily Carvedilol 12.5mg PO daily BID ECHO 01/21: normal LVEF and wall thicknesses; mild MR; moderate aortic sclerosis , without significant ; severe pulmonary HTN. r/p ECHO- EF 60%, diastolic dysfunction, Grade II(pseudonormalization pattern), mild MR, moderate TR, mild Aortic sclerosis, Mild AR #Hyperlipidemia Continue home Atorvastatin #Diabetes mellitus Holding home metformin Insulin sliding scale ACHS #FEN No IV fluids indicated Follow BMP Renal diet (sodium, diabetic modification) DVT ppx SCDs bilateral lower extremities Dispo: monitor kidney functions, cont abx Visit type - Emergency Visit Emergency Visit: Yes ED Registration Date: 10/16/19 Care time: The patient presented to the Emergency Department on the above date and was hospitalized for further evaluation of their emergent condition. - New Patient This patient is new to me today: Yes Date on this admission: 10/18/19 - Critical Care Critical Care patient: No - Discharge Referral Referred to [facility] Med P.C.: No ATTENDING PHYSICIAN STATEMENT I saw and evaluated the patient. I reviewed the resident's note and discussed the case with the resident. I agree with the resident's findings and plan as documented. SUBJECTIVE: OBJECTIVE: ASSESSMENT AND PLAN:
[2019-10-17] MEDS: CARVEDILOL 6.25 MG TABLET (FP) PO SCH (21:29)
[2019-10-17] MEDS: ATORVASTATIN CA 10 MG TABLET (FP) PO SCH (21:30)
[2019-10-17 22:29] VITALS: BMI 25.9
[2019-10-18] MEDS: INSULIN SLIDING SCALE (NOVOLOG) 1 VIAL SQ SCH ×5 (06:53→23:00)
[2019-10-18 07:29] LABS: HEMATOCRIT 37.3 % (32.4-45.2); HEMOGLOBIN 11.5 GM/dL (10.7-15.3); MCH 20.9 pg (25.7-33.7); MCHC 30.9 g/dl (32.0-36.0); MEAN CELL VOLUME 67.5 fl (80-96); PLATELET COUNT 220 K/MM3 (134-434); RBC 5.52 M/mm3 (3.60-5.2); RDW 15.8 % (11.6-15.6); WHITE BLOOD COUNT 9.8 K/mm3 (4.0-10.0)
[2019-10-18 08:04] LABS: ALBUMIN 3.2 g/dl (3.4-5.0); BILIRUBIN,TOTAL 0.6 mg/dL (0.2-1); BLOOD UREA NITROGEN 64.3 mg/dL (7-18); CALCIUM 8.7 mg/dL (8.5-10.1); CREATININE 1.3 mg/dL (0.55-1.3); POTASSIUM 4.1 mmol/L (3.5-5.1)
[2019-10-18] MEDS ORDERED: cefTRIAXone SODIUM 1 GM VIAL ONE (09:46)
[2019-10-18] MEDS ORDERED: DEXTROSE 5%-WATER - 50 ML IVPB ONE (09:46)
[2019-10-18] MEDS: amLODIPine BESYLATE 10 MG TABLET (FP) PO SCH (09:56)
[2019-10-18] MEDS: FUROSEMIDE 40 MG/4 ML INJECTABLE VIAL IVPUSH SCH (09:56)
[2019-10-18] MEDS: CEFTRIAXONE 1 GM in DEXTROSE 5%-WATER - 50 ML IVPB SCH (09:56)
[2019-10-18] MEDS: CARVEDILOL 12.5 MG TABLET (FP) PO SCH (09:56)
[2019-10-18] MEDS: AZITHROMYCIN IVPB 500 MG/250 ML BAG IVPB SCH (10:56)
--- NOTE | 2019-10-18 12:29 | PN ---
Progress Note, Physician Chief Complaint: Events noted Intermittent dyspnea Clinically improving History of Present Illness: Patient was seen and examined. Awake and alert. Chart was reviewed Denies chest pain or palpitations Complains of nonproductive cough - Current Medication List Current Medications: Active Medications Amlodipine Besylate (Norvasc -) 10 mg PO DAILY [facility] Last Admin: 10/18/19 09:56 Dose: 10 mg Atorvastatin Calcium (Lipitor -) 10 mg PO HS [facility] Last Admin: 10/17/19 21:30 Dose: 10 mg Carvedilol (Coreg -) 6.25 mg PO HS [facility] Last Admin: 10/17/19 21:29 Dose: 6.25 mg Carvedilol (Coreg -) 12.5 mg PO DAILY [facility] Last Admin: 10/18/19 09:56 Dose: 12.5 mg Furosemide (Lasix Injection -) 40 mg IVPUSH DAILY [facility] Last Admin: 10/18/19 09:56 Dose: 40 mg Azithromycin (Zithromax 500mg Ivpb (Pre-Docked)) 500 mg in 250 mls @ 250 mls/ hr IVPB DAILY [facility] Last Admin: 10/18/19 10:56 Dose: 250 mls/hr Ceftriaxone Sodium 1 gm/ (Dextrose) 50 mls @ 100 mls/hr IVPB DAILY [facility]; Protocol Last Admin: 10/18/19 09:56 Dose: 100 mls/hr Insulin Aspart (Novolog Vial Sliding Scale -) 1 vial SQ ACHS [facility]; Protocol Last Admin: 10/18/19 11:57 Dose: 4 units - Objective Vital Signs: Vital Signs Temperature 99.3 F 10/18/19 09:49 Pulse Rate 68 10/18/19 09:49 Respiratory Rate 18 10/18/19 09:49 Blood Pressure 136/50 L 10/18/19 09:49 O2 Sat by Pulse Oximetry (%) 92 L 10/18/19 09:00 Eyes: Yes: PERRL HENT: Yes: Atraumatic Neck: Yes: Supple Cardiovascular: Yes: Regular Rate and Rhythm, S1, S2 Respiratory: Yes: Diminished Gastrointestinal: Yes: Normal Bowel Sounds, Soft. No: Tenderness Edema: No Additional Findings/Remarks: - Review of Systems Constitutional: denies: Chills, Fever Cardiovascular: denies Chest Pain, Palpitations, (+) Shortness of Breath Respiratory: (+) Cough, denies: Hemoptysis, Orthopnea, PND, (+) SOB, SOB on Exertion Gastrointestinal: denies: Abdominal Pain, Constipation, Diarrhea, Melena, Nausea , Rectal Bleeding, Vomiting Genitourinary: denies: Dysuria, Hematuria Neurological: denies: Dizziness, Headache, Seizure, Syncope Labs: CBC, BMP 10/18/19 05:34 10/18/19 05:34 Problem List - Problems (1) ANDREW (acute kidney injury) Code(s): N17.9 - ACUTE KIDNEY FAILURE, UNSPECIFIED (2) CHF exacerbation Code(s): I50.9 - HEART FAILURE, UNSPECIFIED Qualifiers: Heart failure type: unspecified Qualified Code(s): I50.9 - Heart failure, unspecified (3) Hyperkalemia Code(s): E87.5 - HYPERKALEMIA (4) Sepsis Code(s): A41.9 - SEPSIS, UNSPECIFIED ORGANISM (5) Severe pulmonary arterial systolic hypertension Code(s): I27.21 - SECONDARY PULMONARY ARTERIAL HYPERTENSION (6) Acute on chronic diastolic (congestive) heart failure Code(s): I50.33 - ACUTE ON CHRONIC DIASTOLIC (CONGESTIVE) HEART FAILURE (7) HTN (hypertension) Code(s): I10 - ESSENTIAL (PRIMARY) HYPERTENSION Qualifiers: Hypertension type: essential hypertension Qualified Code(s): I10 - Essential (primary) hypertension (8) Hyperlipidemia Code(s): E78.5 - HYPERLIPIDEMIA, UNSPECIFIED Qualifiers: Hyperlipidemia type: pure hypercholesterolemia Qualified Code(s): E78.00 - Pure hypercholesterolemia, unspecified; E78.0 - Pure hypercholesterolemia (9) Type 2 diabetes mellitus Code(s): E11.9 - TYPE 2 DIABETES MELLITUS WITHOUT COMPLICATIONS Qualifiers: Diabetes mellitus [employer] insulin use: without group home use Assessment/Plan 1. Clinical presentation c/w acute on chronic diastolic failure with severe pulmonary HTN 2. HTN 3. Hypercholesterolemia 4. Acute on CKD - improved 5. Hyperkalemia - improved 6. T2DM 7. UTI/sepsis 8. Anemia PLAN: 1. Continue Carvedilol 12.5 mg BID and Amlodipine 10 mg QD as tolerated 2. Continue Atorvastatin 10 mg QHS 3. ARB held due to hyperkalemia. Previously was on Losartan which may be restarted if renal function remains stable and K not elevated. 4. Continue diuresis and monitor renal function and electrolytes 5. Echocardiography reviewed 6. Empiric antibiotics 7. Follow up with Dr. Osmany Pride ([facility]) upon discharge Lakhwinder Stanley MD
--- NOTE | 2019-10-18 13:16 | PN ---
Progress Note, Physician History of Present Illness: Pt seen and examined at bedside. She feels that her breathing is improved. - Current Medication List Current Medications: Active Medications Amlodipine Besylate (Norvasc -) 10 mg PO DAILY [facility] Last Admin: 10/18/19 09:56 Dose: 10 mg Atorvastatin Calcium (Lipitor -) 10 mg PO HS [facility] Last Admin: 10/17/19 21:30 Dose: 10 mg Carvedilol (Coreg -) 6.25 mg PO HS [facility] Last Admin: 10/17/19 21:29 Dose: 6.25 mg Carvedilol (Coreg -) 12.5 mg PO DAILY [facility] Last Admin: 10/18/19 09:56 Dose: 12.5 mg Furosemide (Lasix Injection -) 40 mg IVPUSH DAILY [facility] Last Admin: 10/18/19 09:56 Dose: 40 mg Azithromycin (Zithromax 500mg Ivpb (Pre-Docked)) 500 mg in 250 mls @ 250 mls/ hr IVPB DAILY [facility] Last Admin: 10/18/19 10:56 Dose: 250 mls/hr Ceftriaxone Sodium 1 gm/ (Dextrose) 50 mls @ 100 mls/hr IVPB DAILY [facility]; Protocol Last Admin: 10/18/19 09:56 Dose: 100 mls/hr Insulin Aspart (Novolog Vial Sliding Scale -) 1 vial SQ ACHS [facility]; Protocol Last Admin: 10/18/19 11:57 Dose: 4 units - Objective Vital Signs: Vital Signs Temperature 99.3 F 10/18/19 09:49 Pulse Rate 68 10/18/19 09:49 Respiratory Rate 18 10/18/19 09:49 Blood Pressure 136/50 L 10/18/19 09:49 O2 Sat by Pulse Oximetry (%) 92 L 10/18/19 09:00 Constitutional: Yes: Calm Eyes: Yes: Conjunctiva Clear HENT: Yes: Atraumatic Neck: Yes: Supple Cardiovascular: Yes: S1, S2 Respiratory: Yes: Rhonchi Gastrointestinal: Yes: Soft Genitourinary: Yes: WNL Musculoskeletal: Yes: WNL Edema: LLE: Trace, RLE: Trace Neurological: Yes: Oriented Psychiatric: Yes: Oriented Labs: CBC, BMP 10/18/19 05:34 10/18/19 05:34 Problem List - Problems (1) ANDREW (acute kidney injury) Code(s): N17.9 - ACUTE KIDNEY FAILURE, UNSPECIFIED (2) CHF exacerbation Code(s): I50.9 - HEART FAILURE, UNSPECIFIED Qualifiers: Heart failure type: unspecified Qualified Code(s): I50.9 - Heart failure, unspecified (3) Hyperkalemia Code(s): E87.5 - HYPERKALEMIA Assessment/Plan Current Medications Generic Name Dose Route Start Last Admin Trade Name Freluana PRN Reason Stop Dose Admin Amlodipine Besylate 10 mg 10/17/19 10:00 10/18/19 09:56 Norvasc - PO 10 mg DAILY [facility] Administration Atorvastatin Calcium 10 mg 10/16/19 22:00 10/17/19 21:30 Lipitor - PO 10 mg HS [facility] Administration Carvedilol 6.25 mg 10/16/19 22:00 10/17/19 21:29 Coreg - PO 6.25 mg HS [facility] Administration Carvedilol 12.5 mg 10/17/19 10:00 10/18/19 09:56 Coreg - PO 12.5 mg DAILY [facility] Administration Furosemide 40 mg 10/17/19 10:00 10/18/19 09:56 Lasix Injection - IVPUSH 40 mg DAILY [facility] Administration Azithromycin 500 mg in 250 mls @ 250 mls/hr 10/16/19 10:00 10/18/19 10:56 Zithromax 500mg Ivpb (Pre-Docked) IVPB 250 mls/hr DAILY [facility] Administration Ceftriaxone Sodium 1 gm/ 50 mls @ 100 mls/hr 10/16/19 10:00 10/18/19 09:56 Dextrose IVPB 100 mls/hr DAILY [facility] Administration Protocol Insulin Aspart 1 vial 10/16/19 16:30 10/18/19 11:57 Novolog Vial Sliding Scale - SQ 4 units ACHS [facility] Administration Protocol Impression 1. ANDREW 2. hyperkalemia 3. CHF 4. htn 5. DM 6. UTI Plan - renal function is improving - can switch to po lasix tomorrow - bicarb is rising - monitor blood sugar - discussed with family - losartan on hold secondary to hyperkalemia - keep metformin on hold - cont abx - follow cultures
--- NOTE | 2019-10-18 14:08 | PN ---
Physical Exam: SUBJECTIVE: Patient seen and examined. Pt states that her breathing has improved significantly. However, she reports new dysuria. She also reports mild suprapubic tenderness. Otherwise pt is asymptomatic and afebrile, without nay other c/o. Denies f/c/n/v/d/chest pain, sob. OBJECTIVE: Vital Signs Period Temp Pulse Resp BP Sys/[place] Pulse Ox Last 24 Hr 97.2 F-99.3 F 62-68 18-20 109-136/48-85 92-93 GENERAL: The patient is awake, alert, and fully oriented, in no acute distress.. EYES: PERRL, extraocular movements intact, ENT: moist mucous membranes. NECK: Trachea midline, full range of motion, supple. LUNGS: Breath sounds equal, clear to auscultation bilaterally, no wheezes, no crackles, HEART: Regular rate and rhythm, S1, S2 without murmur, rub or gallop. ABDOMEN: Soft, nontender, nondistended, normoactive bowel sounds, no guarding, EXTREMITIES: 2+ pulses, warm, well-perfused, no edema. NEUROLOGICAL: Normal speech, gait not observed. SKIN: Warm, dry, normal turgor, no rashes or lesions noted Laboratory Results - last 24 hr CBC,CMP WBC 9.8 K/mm3 (4.0-10.0) 10/18/19 05:34 RBC 5.52 M/mm3 (3.60-5.2) H 10/18/19 05:34 Hgb 11.5 GM/dL (10.7-15.3) 10/18/19 05:34 Hct 37.3 % (32.4-45.2) 10/18/19 05:34 MCV 67.5 fl (80-96) L 10/18/19 05:34 MCH 20.9 pg (25.7-33.7) L 10/18/19 05:34 MCHC 30.9 g/dl (32.0-36.0) L 10/18/19 05:34 RDW 15.8 % (11.6-15.6) H 10/18/19 05:34 Plt Count 220 K/MM3 (134-434) 10/18/19 05:34 MPV 8.0 fl (7.5-11.1) 10/18/19 05:34 Absolute Neuts (auto) 10.0 K/mm3 (1.5-8.0) H 10/17/19 11:35 Neutrophils % 87.7 % (42.8-82.8) H 10/17/19 11:35 Lymphocytes % 5.4 % (8-40) L D 10/17/19 11:35 Monocytes % 6.3 % (3.8-10.2) 10/17/19 11:35 Eosinophils % 0.3 % (0-4.5) D 10/17/19 11:35 Basophils % 0.3 % (0-2.0) 10/17/19 11:35 Nucleated RBC % 0 % (0-0) 10/17/19 11:35 Hypochromia 1+ 10/16/19 05:12 Platelet Estimate Normal 10/16/19 05:12 Polychromasia 1+ 10/16/19 05:12 Poikilocytosis 2+ 10/16/19 05:12 Anisocytosis 2+ 10/16/19 05:12 Microcytosis 2+ 10/16/19 05:12 Macrocytosis 0 10/16/19 05:12 ESR 17 mm/hr (0-30) 10/16/19 10:35 Retic Count 2.38 % (0.5-1.5) H 10/16/19 10:35 Sodium 140 mmol/L (136-145) 10/18/19 05:34 Potassium 4.1 mmol/L (3.5-5.1) 10/18/19 05:34 Chloride 97 mmol/L (98-107) L 10/18/19 05:34 Carbon Dioxide 38 mmol/L (21-32) H 10/18/19 05:34 Anion Gap 5 MMOL/L (8-16) L 10/18/19 05:34 BUN 64.3 mg/dL (7-18) H 10/18/19 05:34 Creatinine 1.3 mg/dL (0.55-1.3) 10/18/19 05:34 Est GFR (CKD-EPI)AfAm 45.19 10/18/19 05:34 Est GFR (CKD-EPI)NonAf 38.99 10/18/19 05:34 POC Glucometer 255 UNITS (80-120) 10/18/19 11:57 Random Glucose 114 mg/dL (74-106) H 10/18/19 05:34 Hemoglobin A1c % 6.1 % (4.2-6.3) 10/17/19 11:35 Serum Osmolality 330 mosm/kg (278-305) H 10/16/19 10:35 Lactic Acid 0.8 mmol/L (0.4-2.0) 10/17/19 11:35 Calcium 8.7 mg/dL (8.5-10.1) 10/18/19 05:34 Phosphorus 5.2 mg/dL (2.5-4.9) H 10/17/19 11:35 Magnesium 2.5 mg/dL (1.8-2.4) H 10/17/19 11:35 Total Bilirubin 0.6 mg/dL (0.2-1) 10/18/19 05:34 AST 12 U/L (15-37) L 10/18/19 05:34 ALT 14 U/L (13-61) 10/18/19 05:34 Alkaline Phosphatase 76 U/L (45-117) 10/18/19 05:34 Creatine Kinase 32 U/L (26-192) 10/16/19 08:10 Troponin I < 0.02 ng/ml (0.00-0.05) 10/16/19 08:10 C-Reactive Protein < 0.3 MG/DL (0.00-0.3) 10/16/19 08:10 B-Natriuretic Peptide 5086.7 pg/ml (5-450) H 10/16/19 05:12 Total Protein 7.0 g/dl (6.4-8.2) 10/18/19 05:34 Albumin 3.2 g/dl (3.4-5.0) L 10/18/19 05:34 Active Medications Current Medications Amlodipine Besylate (Norvasc -) 10 mg PO DAILY [facility] Last Admin: 10/18/19 09:56 Dose: 10 mg Atorvastatin Calcium (Lipitor -) 10 mg PO [facility] Last Admin: 10/17/19 21:30 Dose: 10 mg Carvedilol (Coreg -) 6.25 mg PO HS [facility] Last Admin: 10/17/19 21:29 Dose: 6.25 mg Carvedilol (Coreg -) 12.5 mg PO DAILY [facility] Last Admin: 10/18/19 09:56 Dose: 12.5 mg Furosemide (Lasix Injection -) 40 mg IVPUSH DAILY [facility] Last Admin: 10/18/19 09:56 Dose: 40 mg Azithromycin (Zithromax 500mg Ivpb (Pre-Docked)) 500 mg in 250 mls @ 250 mls/ hr IVPB DAILY [facility] Last Admin: 10/18/19 10:56 Dose: 250 mls/hr Ceftriaxone Sodium 1 gm/ (Dextrose) 50 mls @ 100 mls/hr IVPB DAILY [facility]; Protocol Last Admin: 10/18/19 09:56 Dose: 100 mls/hr Insulin Aspart (Novolog Vial Sliding Scale -) 1 vial SQ ACHS [facility]; Protocol Last Admin: 10/18/19 11:57 Dose: 4 units Home Medications Medication Instructions Recorded Amlodipine Besylate [Norvasc -] 10 mg PO DAILY 01/10/19 Atorvastatin Calcium [Lipitor] 10 mg PO HS 01/10/19 Metformin HCl [Glucophage] 500 mg PO BID 01/10/19 Furosemide [Lasix -] 20 mg PO DAILY #30 tablet 01/11/19 Carvedilol 6.25 mg PO HS 10/16/19 Carvedilol 12.5 mg PO DAILY 10/16/19 Losartan/Hydrochlorothiazide 1 tab PO DAILY 10/16/19 [Losartan-Hctz 100-25 mg Tab] Microbiology 10/16/19 08:18 Urine - Urine Blevins Urine Culture - Final Escherichia Coli [employer] Database Consultant ASSESSMENT/PLAN: 79 year old female with history of hypertension, hyperlipidemia, HFpEf, noninsulin dependent diabetes mellitus, presents with complaint of shortness of breath #New ESBL UTI Consulted ID- Dr. Wheatley Cont Azithromycin and Rocephin till ID recommendation Acute hypoxic respiratory failure secondary to fluid overload vs. community acquired pneumonia Lasix 40 mg IV daily as per cardio Will consider PO lasix tomorrow Wean off O2 #Acute renal failure Follow renal, bladder US- will f/u results BUN 64.3 and Cre 1.3- improved Iron panel sent #Hyperkalemia Holding home Losartan- HCTZ in setting of ANDREW- #Hypertension Amodipine 10mg PO daily Carvedilol 12.5mg PO daily BID ECHO- EF 60%, diastolic dysfunction, Grade II(pseudonormalization pattern), mild MR, moderate TR, mild Aortic sclerosis, Mild [place] #Hyperlipidemia Continue home Atorvastatin #Diabetes mellitus Holding home metformin Insulin sliding scale ACHS #FEN No IV fluids indicated Monitor gluc and lytes Renal diet (sodium, diabetic modification) DVT ppx Heparin sq Dispo: monitor kidney functions, cont abx, monitor glucose, f/u ID abx recommendation, wean off O2 Visit type - Emergency Visit Emergency Visit: Yes ED Registration Date: 10/16/19 Care time: The patient presented to the Emergency Department on the above date and was hospitalized for further evaluation of their emergent condition. - New Patient This patient is new to me today: Yes Date on this admission: 10/19/19 - Critical Care Critical Care patient: No - Discharge Referral Referred to [facility] Med P.C.: No ATTENDING PHYSICIAN STATEMENT I saw and evaluated the patient. I reviewed the resident's note and discussed the case with the resident. I agree with the resident's findings and plan as documented. SUBJECTIVE: OBJECTIVE: ASSESSMENT AND PLAN:
--- NOTE | 2019-10-18 14:15 | PN ---
Teaching Attending Note Name of Resident: Paco Rinaldi ATTENDING PHYSICIAN STATEMENT I saw and evaluated the patient. I reviewed the resident's note and discussed the case with the resident. I agree with the resident's findings and plan as documented. SUBJECTIVE: Feeling okay. Reports dysuria on presentation. Otherwise, less SOB. No cough/sputum/fevers/chills. OBJECTIVE: Afebrile, Hemodynamically Stable. Last Vital Signs Temp Pulse Resp BP Pulse Ox 99.3 F 68 18 136/50 L 92 L 10/18/19 09:49 10/18/19 09:49 10/18/19 09:49 10/18/19 09:49 10/18/19 09:00 HEENT- Atramatic, Normocephalic. Heart - S1, S2, RRR Lungs - clear to auscultation Abdomen -Soft, non-tender. Bowel Sounds normal. Extremities - no edema, no calf tenderness. Laboratory Results - last 24 hr 10/17/19 10/17/19 10/18/19 17:46 21:29 05:34 WBC 9.8 RBC 5.52 H Hgb 11.5 Hct 37.3 MCV 67.5 L MCH 20.9 L MCHC 30.9 L RDW 15.8 H Plt Count 220 MPV 8.0 Sodium Potassium Chloride Carbon Dioxide Anion Gap BUN Creatinine Est GFR (CKD-EPI)AfAm Est GFR (CKD-EPI)NonAf POC Glucometer 222 70 Random Glucose Calcium Total Bilirubin AST ALT Alkaline Phosphatase Total Protein Albumin 10/18/19 10/18/19 10/18/19 05:34 06:52 11:57 WBC RBC Hgb Hct MCV MCH MCHC RDW Plt Count MPV Sodium 140 Potassium 4.1 Chloride 97 L Carbon Dioxide 38 H Anion Gap 5 L BUN 64.3 H Creatinine 1.3 Est GFR (CKD-EPI)AfAm 45.19 Est GFR (CKD-EPI)NonAf 38.99 POC Glucometer 146 255 Random Glucose 114 H Calcium 8.7 Total Bilirubin 0.6 AST 12 L ALT 14 Alkaline Phosphatase 76 Total Protein 7.0 Albumin 3.2 L Current Medications Generic Name Dose Route Start Last Admin Trade Name Freq PRN Reason Stop Dose Admin Amlodipine Besylate 10 mg 10/17/19 10:00 10/18/19 09:56 Norvasc - PO 10 mg DAILY [facility] Administration Atorvastatin Calcium 10 mg 10/16/19 22:00 10/17/19 21:30 Lipitor - PO 10 mg HS [facility] Administration Carvedilol 6.25 mg 10/16/19 22:00 10/17/19 21:29 Coreg - PO 6.25 mg HS [facility] Administration Carvedilol 12.5 mg 10/17/19 10:00 10/18/19 09:56 Coreg - PO 12.5 mg DAILY [facility] Administration Furosemide 40 mg 10/17/19 10:00 10/18/19 09:56 Lasix Injection - IVPUSH 40 mg DAILY [facility] Administration Azithromycin 500 mg in 250 mls @ 250 mls/hr 10/16/19 10:00 10/18/19 10:56 Zithromax 500mg Ivpb (Pre-Docked) IVPB 250 mls/hr DAILY [facility] Administration Ceftriaxone Sodium 1 gm/ 50 mls @ 100 mls/hr 10/16/19 10:00 10/18/19 09:56 Dextrose IVPB 100 mls/hr DAILY [facility] Administration Protocol Insulin Aspart 1 vial 10/16/19 16:30 10/18/19 11:57 Novolog Vial Sliding Scale - SQ 4 units ACHS [facility] Administration Protocol Home Medications Medication Instructions Recorded Amlodipine Besylate [Norvasc -] 10 mg PO DAILY 01/10/19 Atorvastatin Calcium [Lipitor] 10 mg PO HS 01/10/19 Metformin HCl [Glucophage] 500 mg PO BID 01/10/19 Furosemide [Lasix -] 20 mg PO DAILY #30 tablet 01/11/19 Carvedilol 6.25 mg PO HS 10/16/19 Carvedilol 12.5 mg PO DAILY 10/16/19 Losartan/Hydrochlorothiazide 1 tab PO DAILY 10/16/19 [Losartan-Hctz 100-25 mg Tab] ASSESSMENT AND PLAN: 79 year old female with history of HTN, HLD, Chronic Diastolic CHF, DM 2, presented with increasing shortness of breath. 1. Acute Hypoxic Respiratory Failure secondary to Acute on Chronic Diastolic CHF +/- Severe Pulmonary HTN. Echo - grade II diastolic CHF, severe Pul HTN Continue IV Lasix diuresis - for transition to oral lasix 10/19 as per Cardio. Attempt to wean down supplemental O2. Monitor electrolytes. Cardiology following. 2. ANDREW sec to Cardiorenal Syndrome versus drug induced AIN Renal function normalized. Nephrology following. 3. Possible UTI ESBL + Urine Cx < 60,000 CFU/ml ID consult for further recommendations. 4. Hyperkalemia sec to ANDREW - resolved. ARB held. 5. HTN - Continue Coreg and Amlodipine. Losartan/HCTZ held due to ANDREW/ Hyperkalemia 6. HLD - continue Statin 7. DM 2 - Metformin held. Maintain on Novolog sliding scale. DVT Px - Heparin SQ.
[2019-10-18] MEDS: HEPARIN NA (PORCINE) 5,000 UNITS/ML 1ML VIAL SQ SCH ×2 (15:52→22:59)
--- NOTE | 2019-10-18 17:28 | PN ---
Progress Note (short form) - Note Progress Note: ID consult dictated asked to evaluated positive urine culture- this is most c/w asymptomatic bacteriuria- no need to treat agree with contact isolation in the hospital setting management of chf per cardiology s/p 3 days of rocephin/zithromax- less likely pneumonia with no fever or leukocytosis please call back if needed d/w Dr Paniagua Problem List - Problems (1) Asymptomatic bacteriuria Code(s): R82.71 - BACTERIURIA (2) CHF exacerbation Code(s): I50.9 - HEART FAILURE, UNSPECIFIED Qualifiers: Heart failure type: unspecified Qualified Code(s): I50.9 - Heart failure, unspecified
--- NOTE | 2019-10-18 19:22 | CONS ---
DATE OF CONSULTATION: DATE OF DICTATION: 10/18/2019 INFECTIOUS DISEASE CONSULTATION REQUESTING PHYSICIAN: Hospitalist Service CONSULTING PHYSICIAN: Tej Adler M.D. HISTORY OF PRESENT ILLNESS: This is a 79-year-old woman who was admitted on October 16. At that time, she presented with shortness of breath. She had just finished a 4-day course of clarithromycin for cough and flulike symptoms. Her shortness of breath had increased on the morning of the , which resulted in her coming to the ER. In the ER, she was found to have no fever. She was felt to have acute on chronic heart failure. She was noted to have a normal white count, and she had a CAT scan of her chest that revealed ground glass opacity that was unchanged from January 21, 2019, with bibasilar atelectasis. There was no acute pneumonia. She had no complaints of dysuria, flank pain, or suprapubic pain. She was started on ceftriaxone and Zithromax, which she is now on day 3. Today her urine culture came back with an E. coli ESBL reproducer, and I am asked to comment 50 to 60 thousand. Patient is resting comfortably in bed. Her renal function, she has no complaints about any dysuria. On admission, she was noted to be in acute renal failure with an elevated BUN, creatinine. She was seen by renal. I am asked to comment on her urine culture. She has now had a routine chest x-ray after admission that shows some minimal congestion. She denies any shortness of breath, and she feels well. PAST MEDICAL HISTORY: Notable for hypertension, hyperlipidemia, heart failure, noninsulin dependent diabetes. Never had any surgery. No history of cigarette, alcohol, or substance use. ALLERGIES: There are no known drug allergies. MEDICATION: Her medications at home include amlodipine, atorvastatin, Coreg, losartan, metformin, and Lasix. REVIEW OF SYSTEMS: As per HPI. She shortness of breath. She has had no fevers. She has had no urinary or abdominal complaints. 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 PHYSICAL EXAMINATION: General: She is resting comfortably, she is in no acute distress. She has never had fever since admission. Vital Signs: Temperature is 98.9, pulse is 75, blood pressure 108/47, respiratory rate 18. HEENT: Normocephalic. Eyes are anicteric. Neck: Supple. Lungs: Clear to auscultation. Heart: Regular rate and rhythm. Abdomen: Soft, nontender. Extremities: Without edema. On admission, her potassium was 6.4 with a BUN of 111 and creatinine of 2.9. Her repeat chemistries now, her BUN and creatinine are 64 and 1.3, normal LFTs, potassium of 4.1. Her white count is 9.8, hemoglobin 11.5, platelets are 220. Urinalysis has 6 white cells. Influenza screen was done and is negative. HIV was done and is negative. Urine cultures as stated before have 50 to 60 thousand colonies of E. coli ESBL reproducer. She had renal and bladder sonograms done that showed moderately atrophic kidneys without hydro. The results of her chest CT are previously stated, and chest x-rays are as previously stated. IMPRESSION: 1. In summary, this is a 79-year-old woman admitted with what appears to be an acute exacerbation of chronic heart failure who is clinically improved. She has no signs to suggest urinary tract infection. She denies to me any dysuria, suprapubic pain or back pain. She has no fevers or chills. I would suspect that this low colony count represents asymptomatic bacteruria, would agree with isolation while in the hospital. This is most likely the result of multiple antibiotics. No need to treat for urinary tract infection. 2. Heart failure. She appears to be improving with diuresis. I think it would be reasonable to stop her antibiotics. She has got 3 days of Zithromax and ceftriaxone. The acute kidney injury appears to be improved as well. Case was discussed at length with the resident for the team. As an addendum, she also has known severe pulmonary hypertension. TEJ ADLER M.D. [id number] MTDJenna
[2019-10-18] MEDS: CARVEDILOL 6.25 MG TABLET (FP) PO SCH (22:59)
[2019-10-18] MEDS: ATORVASTATIN CA 10 MG TABLET (FP) PO SCH (22:59)
[2019-10-19] MEDS: HEPARIN NA (PORCINE) 5,000 UNITS/ML 1ML VIAL SQ SCH ×3 (06:51→21:19)
[2019-10-19] MEDS: INSULIN SLIDING SCALE (NOVOLOG) 1 VIAL SQ SCH ×4 (06:52→21:20)
[2019-10-19] MEDS: FUROSEMIDE 40 MG/4 ML INJECTABLE VIAL IVPUSH SCH (09:34)
[2019-10-19] MEDS: amLODIPine BESYLATE 10 MG TABLET (FP) PO SCH (09:34)
[2019-10-19] MEDS: CARVEDILOL 12.5 MG TABLET (FP) PO SCH (09:35)
--- NOTE | 2019-10-19 10:11 | PN ---
Progress Note, Physician History of Present Illness: Productive cough, SOB, BLE edema improving with diuresis. - Current Medication List Current Medications: Active Medications Amlodipine Besylate (Norvasc -) 10 mg PO DAILY [facility] Last Admin: 10/19/19 09:34 Dose: 10 mg Atorvastatin Calcium (Lipitor -) 10 mg PO [facility] Last Admin: 10/18/19 22:59 Dose: 10 mg Carvedilol (Coreg -) 6.25 mg PO [facility] Last Admin: 10/18/19 22:59 Dose: 6.25 mg Carvedilol (Coreg -) 12.5 mg PO DAILY [facility] Last Admin: 10/19/19 09:35 Dose: 12.5 mg Furosemide (Lasix Injection -) 40 mg IVPUSH DAILY [facility] Last Admin: 10/19/19 09:34 Dose: 40 mg Heparin Sodium (Porcine) (Heparin -) 5,000 unit SQ TID [facility] Last Admin: 10/19/19 06:51 Dose: 5,000 unit Insulin Aspart (Novolog Vial Sliding Scale -) 1 vial SQ [facility]; Protocol Last Admin: 10/19/19 06:52 Dose: Not Given - Objective Vital Signs: Vital Signs Temperature 98.2 F 10/19/19 09:40 Pulse Rate 66 10/19/19 09:40 Respiratory Rate 18 10/19/19 09:40 Blood Pressure 128/56 L 10/19/19 09:40 O2 Sat by Pulse Oximetry (%) 93 L 10/18/19 21:00 Constitutional: Yes: No Distress, Calm, Thin Neck: Yes: Supple Cardiovascular: Yes: Regular Rate and Rhythm Respiratory: Yes: Regular, Diminished, On Nasal O2 Gastrointestinal: Yes: Normal Bowel Sounds, Soft Edema: No Labs: CBC, BMP 10/18/19 05:34 10/18/19 05:34 - ....Imaging EKG: Report Reviewed (Tele: NSR) Problem List - Problems (1) CHF exacerbation Code(s): I50.9 - HEART FAILURE, UNSPECIFIED Qualifiers: Heart failure type: diastolic Qualified Code(s): I50.33 - Acute on chronic diastolic (congestive) heart failure (2) Severe pulmonary arterial systolic hypertension Code(s): I27.21 - SECONDARY PULMONARY ARTERIAL HYPERTENSION (3) Acute hypoxemic respiratory failure Code(s): J96.01 - ACUTE RESPIRATORY FAILURE WITH HYPOXIA (4) Acute on chronic diastolic (congestive) heart failure Code(s): I50.33 - ACUTE ON CHRONIC DIASTOLIC (CONGESTIVE) HEART FAILURE (5) Hyperlipidemia Code(s): E78.5 - HYPERLIPIDEMIA, UNSPECIFIED Qualifiers: Hyperlipidemia type: pure hypercholesterolemia Qualified Code(s): E78.00 - Pure hypercholesterolemia, unspecified; E78.0 - Pure hypercholesterolemia (6) Hypertensive cardiomyopathy Code(s): I11.9 - HYPERTENSIVE HEART DISEASE WITHOUT HEART FAILURE; I43 - CARDIOMYOPATHY IN DISEASES CLASSIFIED ELSEWHERE Qualifiers: Heart failure presence: with heart failure Qualified Code(s): I11.0 - Hypertensive heart disease with heart failure; I43 - Cardiomyopathy in diseases classified elsewhere (7) Type 2 diabetes mellitus Code(s): E11.9 - TYPE 2 DIABETES MELLITUS WITHOUT COMPLICATIONS Qualifiers: Diabetes mellitus intermediate project manager insulin use: without correction use Assessment/Plan 10/17/2019 Echo: Normal LV and RV size and fxn LVEF 55-60%, mod TR RVSP 60 mmHg , mild MR, MI 01/11/2019 Echo: Normal LV size and fxn LVEF 70%, normal RV size and fxn, tr- mild MR RVSP 65 mmHg 1. Acute on chronic diastolic failure with severe pulmonary HTN 2. HTN 3. Hypercholesterolemia 4. Acute on CKD - improved 5. Hyperkalemia - improved 6. T2DM 7. UTI 8. Anemia PLAN: 1. Continue Carvedilol 12.5 mg BID and Amlodipine 10 mg QD as tolerated 2. Continue Atorvastatin 10 mg QHS 3. Resume Losartan 25 qd given stable renal function and resolution of hyperkalemia, uptitrate as hemodynamics tolerate 4. Resume oral diuresis with Lasix 20 qd and monitor renal function and electrolytes 5. Echocardiography results reviewed 6. Observe off empiric antibiotics per ID 7. Follow up with Dr. Osmany Pride ([facility]) upon discharge
[2019-10-19] MEDS ORDERED: FUROSEMIDE 40 MG/4 ML INJECTABLE VIAL IVPUSH ONE (11:45)
[2019-10-19] MEDS: LOSARTAN POTASSIUM 25 MG TABLET PO SCH (12:07)
--- NOTE | 2019-10-19 12:57 | PN ---
Progress Note, Physician History of Present Illness: Pt seen and examined at bedside. She is awake and appears comfortable. - Current Medication List Current Medications: Active Medications Amlodipine Besylate (Norvasc -) 10 mg PO DAILY [facility] Last Admin: 10/19/19 09:34 Dose: 10 mg Atorvastatin Calcium (Lipitor -) 10 mg PO HS [facility] Last Admin: 10/18/19 22:59 Dose: 10 mg Carvedilol (Coreg -) 6.25 mg PO HS [facility] Last Admin: 10/18/19 22:59 Dose: 6.25 mg Carvedilol (Coreg -) 12.5 mg PO DAILY [facility] Last Admin: 10/19/19 09:35 Dose: 12.5 mg Furosemide (Lasix -) 20 mg PO DAILY [facility] Heparin Sodium (Porcine) (Heparin -) 5,000 unit SQ TID [facility] Last Admin: 10/19/19 06:51 Dose: 5,000 unit Insulin Aspart (Novolog Vial Sliding Scale -) 1 vial SQ ACHS [facility]; Protocol Last Admin: 10/19/19 12:07 Dose: Not Given Losartan Potassium (Cozaar -) 25 mg PO DAILY [facility] Last Admin: 10/19/19 12:07 Dose: 25 mg - Objective Vital Signs: Vital Signs Temperature 98.2 F 10/19/19 09:40 Pulse Rate 66 10/19/19 09:40 Respiratory Rate 18 10/19/19 09:40 Blood Pressure 128/56 L 10/19/19 09:40 O2 Sat by Pulse Oximetry (%) 91 L 10/19/19 09:00 Constitutional: Yes: Calm Eyes: Yes: Conjunctiva Clear HENT: Yes: Atraumatic Neck: Yes: Supple Cardiovascular: Yes: S1, S2 Respiratory: Yes: CTA Bilaterally Gastrointestinal: Yes: Normal Bowel Sounds, Soft Genitourinary: Yes: Blevins Present Musculoskeletal: Yes: WNL Edema: No Neurological: Yes: Oriented Labs: CBC, BMP 10/18/19 05:34 10/18/19 05:34 Problem List - Problems (1) ANDREW (acute kidney injury) Code(s): N17.9 - ACUTE KIDNEY FAILURE, UNSPECIFIED (2) CHF exacerbation Code(s): I50.9 - HEART FAILURE, UNSPECIFIED Qualifiers: Heart failure type: diastolic Qualified Code(s): I50.33 - Acute on chronic diastolic (congestive) heart failure (3) Hyperkalemia Code(s): E87.5 - HYPERKALEMIA Assessment/Plan Current Medications Generic Name Dose Route Start Last Admin Trade Name Ratna PRN Reason Stop Dose Admin Amlodipine Besylate 10 mg 10/17/19 10:00 10/19/19 09:34 Norvasc - PO 10 mg DAILY [facility] Administration Atorvastatin Calcium 10 mg 10/16/19 22:00 10/18/19 22:59 Lipitor - PO 10 mg HS [facility] Administration Carvedilol 6.25 mg 10/16/19 22:00 10/18/19 22:59 Coreg - PO 6.25 mg HS [facility] Administration Carvedilol 12.5 mg 10/17/19 10:00 10/19/19 09:35 Coreg - PO 12.5 mg DAILY [facility] Administration Furosemide 20 mg 10/20/19 10:00 Lasix - PO DAILY [facility] Heparin Sodium (Porcine) 5,000 unit 10/18/19 14:30 10/19/19 06:51 Heparin - SQ 5,000 unit TID [facility] Administration Insulin Aspart 1 vial 10/16/19 16:30 10/19/19 12:07 Novolog Vial Sliding Scale - SQ Not Given ACHS [facility] Protocol Losartan Potassium 25 mg 10/19/19 11:15 10/19/19 12:07 Cozaar - PO 25 mg DAILY [facility] Administration Impression 1. ANDREW 2. hyperkalemia 3. CHF 4. htn 5. DM 6. UTI - ESBL Plan - cont po lasix - monitor potassium closely while on losartan - losartan stated at lower dose - will place on low potassium diet - repeat labs in am - keep metformin on hold - pt now with ESBL
--- NOTE | 2019-10-19 13:25 | PN ---
Teaching Attending Note Name of Resident: Paco Rinaldi ATTENDING PHYSICIAN STATEMENT I saw and evaluated the patient. I reviewed the resident's note and discussed the case with the resident. I agree with the resident's findings and plan as documented. SUBJECTIVE: Feels well, no complaints. SOB improved. No cough/sputum/fevers/ chills. OBJECTIVE: Afebrile, Hemodynamically Stable. Last Vital Signs Temp Pulse Resp BP Pulse Ox 98.2 F 66 18 128/56 L 91 L 10/19/19 09:40 10/19/19 09:40 10/19/19 09:40 10/19/19 09:40 10/19/19 09:00 Heart - S1, S2, RRR Lungs - clear to auscultation, decreased at bases. Abdomen -Soft, non-tender. Bowel Sounds normal. Extremities - trace edema, no calf tenderness. Laboratory Results - last 24 hr 10/18/19 10/18/19 10/18/19 05:34 17:03 23:00 Sodium 140 Potassium 4.1 Chloride 97 L Carbon Dioxide 38 H Anion Gap 5 L BUN 64.3 H Creatinine 1.3 Est GFR (CKD-EPI)AfAm 45.19 Est GFR (CKD-EPI)NonAf 38.99 POC Glucometer 119 146 Random Glucose 114 H Calcium 8.7 Iron 54 TIBC 287 Iron Saturation 18 Unsaturated IBC 233 Ferritin 30.4 Total Bilirubin 0.6 AST 12 L ALT 14 Alkaline Phosphatase 76 Total Protein 7.0 Albumin 3.2 L 10/19/19 10/19/19 06:51 12:04 Sodium Potassium Chloride Carbon Dioxide Anion Gap BUN Creatinine Est GFR (CKD-EPI)AfAm Est GFR (CKD-EPI)NonAf POC Glucometer 147 140 Random Glucose Calcium Iron TIBC Iron Saturation Unsaturated IBC Ferritin Total Bilirubin AST ALT Alkaline Phosphatase Total Protein Albumin Current Medications Generic Name Dose Route Start Last Admin Trade Name Freq PRN Reason Stop Dose Admin Amlodipine Besylate 10 mg 10/17/19 10:00 10/19/19 09:34 Norvasc - PO 10 mg DAILY RITU Administration Atorvastatin Calcium 10 mg 10/16/19 22:00 10/18/19 22:59 Lipitor - PO 10 mg HS RITU Administration Carvedilol 6.25 mg 10/16/19 22:00 10/18/19 22:59 Coreg - PO 6.25 mg HS RITU Administration Carvedilol 12.5 mg 10/17/19 10:00 10/19/19 09:35 Coreg - PO 12.5 mg DAILY RITU Administration Furosemide 20 mg 10/20/19 10:00 Lasix - PO DAILY [facility] Heparin Sodium (Porcine) 5,000 unit 10/18/19 14:30 10/19/19 06:51 Heparin - SQ 5,000 unit TID RITU Administration Insulin Aspart 1 vial 10/16/19 16:30 10/19/19 12:07 Novolog Vial Sliding Scale - SQ Not Given ACHS [facility] Protocol Losartan Potassium 25 mg 10/19/19 11:15 10/19/19 12:07 Cozaar - PO 25 mg DAILY RITU Administration Home Medications Medication Instructions Recorded Amlodipine Besylate [Norvasc -] 10 mg PO DAILY 01/10/19 Atorvastatin Calcium [Lipitor] 10 mg PO HS 01/10/19 Metformin HCl [Glucophage] 500 mg PO BID 01/10/19 Furosemide [Lasix -] 20 mg PO DAILY #30 tablet 01/11/19 Carvedilol 6.25 mg PO HS 10/16/19 Carvedilol 12.5 mg PO DAILY 10/16/19 Losartan/Hydrochlorothiazide 1 tab PO DAILY 10/16/19 [Losartan-Hctz 100-25 mg Tab] ASSESSMENT AND PLAN: 79 year old female with history of HTN, HLD, Chronic Diastolic CHF, DM 2, presented with increasing shortness of breath. 1. Acute Hypoxic Respiratory Failure secondary to Acute on Chronic Diastolic CHF +/- Severe Pulmonary HTN. Echo - grade II diastolic CHF, severe Pul HTN Will receive IV Lasix today - for subsequent transition to home dose oral lasix. Will continue to attempt to wean down supplemental O2. Monitor electrolytes. Cardiology following. Pre- and post- SpO2 measurements. 2. ANDREW sec to Cardiorenal Syndrome versus drug induced AIN Losartan/HCTZ initially held. Renal function normalized. Losartan re-introduced at lower dose. Nephrology following. 3. Possible UTI ESBL + Urine Cx < 60,000 CFU/ml No need for further Abx as per ID. 4. Hyperkalemia sec to ANDREW - resolved. ARB resumed at lower dose of 25mg. 5. HTN - Continue Coreg and Amlodipine. Losartan resumed at lower dose of 25mg. HCTZ held. 6. HLD - continue Statin 7. DM 2 - Metformin held. Maintain on Novolog sliding scale. DVT Px - Heparin SQ.
--- NOTE | 2019-10-19 15:29 | PN ---
Physical Exam: SUBJECTIVE: Patient seen and examined. Pt states that her breathing has improved significantly. Otherwise pt is asymptomatic and afebrile, without any other c/o. Denies f/c/n/v/d/chest pain, sob. OBJECTIVE: Last Vital Signs Temp Pulse Resp BP Pulse Ox 98.4 F 68 18 124/47 L 90 L 10/19/19 14:00 10/19/19 14:00 10/19/19 14:00 10/19/19 14:00 10/19/19 13:15 GENERAL: The patient is awake, alert, and fully oriented, in no acute distress.. EYES: PERRL, extraocular movements intact, ENT: moist mucous membranes. NECK: Trachea midline, full range of motion, supple. LUNGS: Breath sounds equal, clear to auscultation bilaterally, no wheezes, no crackles, HEART: Regular rate and rhythm, S1, S2 without murmur, rub or gallop. ABDOMEN: Soft, nontender, nondistended, normoactive bowel sounds, no guarding, EXTREMITIES: 2+ pulses, warm, well-perfused, no edema. NEUROLOGICAL: Normal speech, gait not observed. SKIN: Warm, dry, normal turgor, no rashes or lesions noted Laboratory Results - last 24 hr CBC,CMP WBC 9.8 K/mm3 (4.0-10.0) 10/18/19 05:34 RBC 5.52 M/mm3 (3.60-5.2) H 10/18/19 05:34 Hgb 11.5 GM/dL (10.7-15.3) 10/18/19 05:34 Hct 37.3 % (32.4-45.2) 10/18/19 05:34 MCV 67.5 fl (80-96) L 10/18/19 05:34 MCH 20.9 pg (25.7-33.7) L 10/18/19 05:34 MCHC 30.9 g/dl (32.0-36.0) L 10/18/19 05:34 RDW 15.8 % (11.6-15.6) H 10/18/19 05:34 Plt Count 220 K/MM3 (134-434) 10/18/19 05:34 MPV 8.0 fl (7.5-11.1) 10/18/19 05:34 Absolute Neuts (auto) 10.0 K/mm3 (1.5-8.0) H 10/17/19 11:35 Neutrophils % 87.7 % (42.8-82.8) H 10/17/19 11:35 Lymphocytes % 5.4 % (8-40) L D 10/17/19 11:35 Monocytes % 6.3 % (3.8-10.2) 10/17/19 11:35 Eosinophils % 0.3 % (0-4.5) D 10/17/19 11:35 Basophils % 0.3 % (0-2.0) 10/17/19 11:35 Nucleated RBC % 0 % (0-0) 10/17/19 11:35 Hypochromia 1+ 10/16/19 05:12 Platelet Estimate Normal 10/16/19 05:12 Polychromasia 1+ 10/16/19 05:12 Poikilocytosis 2+ 10/16/19 05:12 Anisocytosis 2+ 10/16/19 05:12 Microcytosis 2+ 10/16/19 05:12 Macrocytosis 0 10/16/19 05:12 ESR 17 mm/hr (0-30) 10/16/19 10:35 Retic Count 2.38 % (0.5-1.5) H 10/16/19 10:35 Sodium 140 mmol/L (136-145) 10/18/19 05:34 Potassium 4.1 mmol/L (3.5-5.1) 10/18/19 05:34 Chloride 97 mmol/L (98-107) L 10/18/19 05:34 Carbon Dioxide 38 mmol/L (21-32) H 10/18/19 05:34 Anion Gap 5 MMOL/L (8-16) L 10/18/19 05:34 BUN 64.3 mg/dL (7-18) H 10/18/19 05:34 Creatinine 1.3 mg/dL (0.55-1.3) 10/18/19 05:34 Est GFR (CKD-EPI)AfAm 45.19 10/18/19 05:34 Est GFR (CKD-EPI)NonAf 38.99 10/18/19 05:34 POC Glucometer 140 UNITS (80-120) 10/19/19 12:04 Random Glucose 114 mg/dL (74-106) H 10/18/19 05:34 Hemoglobin A1c % 6.1 % (4.2-6.3) 10/17/19 11:35 Serum Osmolality 330 mosm/kg (278-305) H 10/16/19 10:35 Lactic Acid 0.8 mmol/L (0.4-2.0) 10/17/19 11:35 Calcium 8.7 mg/dL (8.5-10.1) 10/18/19 05:34 Phosphorus 5.2 mg/dL (2.5-4.9) H 10/17/19 11:35 Magnesium 2.5 mg/dL (1.8-2.4) H 10/17/19 11:35 Iron 54 ug/dL (50-175) 10/18/19 05:34 TIBC 287 ug/dL (250-450) 10/18/19 05:34 Iron Saturation 18 % (17.5-39) 10/18/19 05:34 Unsaturated IBC 233 ug/dL (200-275) 10/18/19 05:34 Ferritin 30.4 ng/ml (8-388) 10/18/19 05:34 Total Bilirubin 0.6 mg/dL (0.2-1) 10/18/19 05:34 AST 12 U/L (15-37) L 10/18/19 05:34 ALT 14 U/L (13-61) 10/18/19 05:34 Alkaline Phosphatase 76 U/L (45-117) 10/18/19 05:34 Creatine Kinase 32 U/L (26-192) 10/16/19 08:10 Troponin I < 0.02 ng/ml (0.00-0.05) 10/16/19 08:10 C-Reactive Protein < 0.3 MG/DL (0.00-0.3) 10/16/19 08:10 B-Natriuretic Peptide 5086.7 pg/ml (5-450) H 10/16/19 05:12 Total Protein 7.0 g/dl (6.4-8.2) 10/18/19 05:34 Albumin 3.2 g/dl (3.4-5.0) L 10/18/19 05:34 Active Medications Current Medications Amlodipine Besylate (Norvasc -) 10 mg PO DAILY [facility]ITU Last Admin: 10/19/19 09:34 Dose: 10 mg Atorvastatin Calcium (Lipitor -) 10 mg PO HS [facility] Last Admin: 10/18/19 22:59 Dose: 10 mg Carvedilol (Coreg -) 6.25 mg PO HS [facility] Last Admin: 10/18/19 22:59 Dose: 6.25 mg Carvedilol (Coreg -) 12.5 mg PO DAILY [facility] Last Admin: 10/19/19 09:35 Dose: 12.5 mg Furosemide (Lasix -) 20 mg PO DAILY [facility] Heparin Sodium (Porcine) (Heparin -) 5,000 unit SQ TID [facility] Last Admin: 10/19/19 14:43 Dose: 5,000 unit Insulin Aspart (Novolog Vial Sliding Scale -) 1 vial SQ ACHS [facility]; Protocol Last Admin: 10/19/19 12:07 Dose: Not Given Losartan Potassium (Cozaar -) 25 mg PO DAILY [facility] Last Admin: 10/19/19 12:07 Dose: 25 mg Home Medications Medication Instructions Recorded Amlodipine Besylate [Norvasc -] 10 mg PO DAILY 01/10/19 Atorvastatin Calcium [Lipitor] 10 mg PO HS 01/10/19 Metformin HCl [Glucophage] 500 mg PO BID 01/10/19 Furosemide [Lasix -] 20 mg PO DAILY #30 tablet 01/11/19 Carvedilol 6.25 mg PO HS 10/16/19 Carvedilol 12.5 mg PO DAILY 10/16/19 Losartan/Hydrochlorothiazide 1 tab PO DAILY 10/16/19 [Losartan-Hctz 100-25 mg Tab] Microbiology 10/16/19 08:18 Urine - Urine [place] Urine Culture - Final Escherichia Coli Esbl Child Psychologist ASSESSMENT/PLAN: 79 year old female with history of hypertension, hyperlipidemia, HFpEf, noninsulin dependent diabetes mellitus, presents with complaint of shortness of breath #New ESBL UTI Abx d/adelaide asymptomatic bacteruria #Acute hypoxic respiratory failure secondary to fluid overload vs. community acquired pneumonia Lasix 40 mg IV given today Discussed with Dr. Julien, cardio- recommended sending pt home on home dose of 20 mg Lasix po Will sent pt home on lasix 20mg PO tomorrow Wean off O2 Respiratory to walk pt and get pre and post- will f/u #Acute renal failure Follow renal, bladder US- moderate atrophic kidneys, no evidence of hydronephrosis or acute pathology Iron panel sent-pending Morning labs were not reported #Hyperkalemia Resumed Losartan 25mg and will titrate up Follow up with Dr. Osmany Pride ([facility]) upon discharge #Hypertension Amodipine 10mg PO daily Carvedilol 12.5mg PO daily BID #Hyperlipidemia Continue home Atorvastatin #Diabetes mellitus Holding home metformin Insulin sliding scale ACHS #FEN No IV fluids indicated Monitor gluc and lytes Renal diet (sodium, diabetic modification) DVT ppx Heparin sq Dispo: monitor kidney functions, cont abx, monitor glucose, off Abx, wean off O2 , Monitor potassium levels Visit type - Emergency Visit Emergency Visit: Yes ED Registration Date: 10/16/19 Care time: The patient presented to the Emergency Department on the above date and was hospitalized for further evaluation of their emergent condition. - New Patient This patient is new to me today: Yes Date on this admission: 10/20/19 - Critical Care Critical Care patient: No - Discharge Referral Referred to [facility] Med [facility].C[facility] No ATTENDING PHYSICIAN STATEMENT I saw and evaluated the patient. I reviewed the resident's note and discussed the case with the resident. I agree with the resident's findings and plan as documented. SUBJECTIVE: OBJECTIVE: ASSESSMENT AND PLAN:
[2019-10-19] MEDS: CARVEDILOL 6.25 MG TABLET (FP) PO SCH (21:19)
[2019-10-19] MEDS: ATORVASTATIN CA 10 MG TABLET (FP) PO SCH (21:19)
[2019-10-20] MEDS: HEPARIN NA (PORCINE) 5,000 UNITS/ML 1ML VIAL SQ SCH (05:41)
[2019-10-20] MEDS: INSULIN SLIDING SCALE (NOVOLOG) 1 VIAL SQ SCH (06:11)
[2019-10-20 07:56] LABS: HEMATOCRIT 39.7 % (32.4-45.2); HEMOGLOBIN 12.4 GM/dL (10.7-15.3); MCHC 31.2 g/dl (32.0-36.0); MEAN CELL VOLUME 67.2 fl (80-96); MEAN PLT VOLUME 8.3 fl (7.5-11.1); PLATELET COUNT 234 K/MM3 (134-434); WHITE BLOOD COUNT 10.5 K/mm3 (4.0-10.0)
[2019-10-20 08:41] LABS: ALBUMIN 3.2 g/dl (3.4-5.0); BILIRUBIN,TOTAL 0.5 mg/dL (0.2-1); BLOOD UREA NITROGEN 52.3 mg/dL (7-18); CREATININE 1.3 mg/dL (0.55-1.3); MAGNESIUM 2.2 mg/dL (1.8-2.4); TOT PROT 7.3 g/dl (6.4-8.2)
[2019-10-20] MEDS ORDERED: FUROSEMIDE 20 MG TABLET (FP) PO SCH (10:00)
--- NOTE | 2019-10-20 10:20 | PN ---
Progress Note, Physician History of Present Illness: Productive cough, SOB, BLE edema improving with diuresis. Plan for d/c today. - Current Medication List Current Medications: Active Medications Amlodipine Besylate (Norvasc -) 10 mg PO DAILY [facility] Last Admin: 10/19/19 09:34 Dose: 10 mg Atorvastatin Calcium (Lipitor -) 10 mg PO HS [facility] Last Admin: 10/19/19 21:19 Dose: 10 mg Carvedilol (Coreg -) 6.25 mg PO HS [facility] Last Admin: 10/19/19 21:19 Dose: 6.25 mg Carvedilol (Coreg -) 12.5 mg PO DAILY [facility] Last Admin: 10/19/19 09:35 Dose: 12.5 mg Furosemide (Lasix -) 20 mg PO DAILY [facility] Heparin Sodium (Porcine) (Heparin -) 5,000 unit SQ TID [facility] Last Admin: 10/20/19 05:41 Dose: 5,000 unit Insulin Aspart (Novolog Vial Sliding Scale -) 1 vial SQ ACHS [facility]; Protocol Last Admin: 10/20/19 06:11 Dose: Not Given Losartan Potassium (Cozaar -) 25 mg PO DAILY [facility] Last Admin: 10/19/19 12:07 Dose: 25 mg - Objective Vital Signs: Vital Signs Temperature 98.4 F 10/20/19 05:52 Pulse Rate 69 10/20/19 05:52 Respiratory Rate 16 10/20/19 05:52 Blood Pressure 122/62 10/20/19 05:52 O2 Sat by Pulse Oximetry (%) 95 10/19/19 20:19 Constitutional: Yes: No Distress, Calm Neck: Yes: Supple Cardiovascular: Yes: Regular Rate and Rhythm Respiratory: Yes: Regular, Diminished Gastrointestinal: Yes: Normal Bowel Sounds, Soft Edema: No Labs: CBC, BMP 10/20/19 07:09 10/20/19 07:09 Problem List - Problems (1) Severe pulmonary arterial systolic hypertension Code(s): I27.21 - SECONDARY PULMONARY ARTERIAL HYPERTENSION (2) Acute hypoxemic respiratory failure Code(s): J96.01 - ACUTE RESPIRATORY FAILURE WITH HYPOXIA (3) Acute on chronic diastolic (congestive) heart failure Code(s): I50.33 - ACUTE ON CHRONIC DIASTOLIC (CONGESTIVE) HEART FAILURE (4) Hyperlipidemia Code(s): E78.5 - HYPERLIPIDEMIA, UNSPECIFIED Qualifiers: Hyperlipidemia type: pure hypercholesterolemia Qualified Code(s): E78.00 - Pure hypercholesterolemia, unspecified; E78.0 - Pure hypercholesterolemia (5) Hypertensive cardiomyopathy Code(s): I11.9 - HYPERTENSIVE HEART DISEASE WITHOUT HEART FAILURE; I43 - CARDIOMYOPATHY IN DISEASES CLASSIFIED ELSEWHERE Qualifiers: Heart failure presence: with heart failure Qualified Code(s): I11.0 - Hypertensive heart disease with heart failure; I43 - Cardiomyopathy in diseases classified elsewhere (6) Type 2 diabetes mellitus Code(s): E11.9 - TYPE 2 DIABETES MELLITUS WITHOUT COMPLICATIONS Qualifiers: Diabetes mellitus residential insulin use: without residential use Assessment/Plan 10/17/2019 Echo: Normal LV and RV size and fxn LVEF 55-60%, mod TR RVSP 60 mmHg , mild MR, SD 01/11/2019 Echo: Normal LV size and fxn LVEF 70%, normal RV size and fxn, tr- mild MR RVSP 65 mmHg 1. Acute on chronic diastolic failure with severe pulmonary HTN 2. HTN 3. Hypercholesterolemia 4. Acute on CKD - improved 5. Hyperkalemia - improved 6. T2DM 7. UTI - ESBL 8. Anemia PLAN: 1. Continue Carvedilol 12.5 mg BID and Amlodipine 10 mg QD as tolerated 2. Continue Atorvastatin 10 mg QHS 3. Continue Losartan 25 qd given stable renal function and resolution of hyperkalemia, uptitrate as hemodynamics tolerate 4. Continue oral diuresis with Lasix 20 qd and monitor renal function and electrolytes 5. Echocardiography results reviewed 6. Observe off empiric antibiotics per ID 7. Follow up with Dr. Osmany Pride ([facility]) upon discharge
[2019-10-20] MEDS: CARVEDILOL 12.5 MG TABLET (FP) PO SCH (10:26)
[2019-10-20] MEDS: amLODIPine BESYLATE 10 MG TABLET (FP) PO SCH (10:26)
[2019-10-20] MEDS: LOSARTAN POTASSIUM 25 MG TABLET PO SCH (10:26)
--- NOTE | 2019-10-20 10:58 | PN ---
Teaching Attending Note Name of Resident: Paco Rinaldi ATTENDING PHYSICIAN STATEMENT I saw and evaluated the patient. I reviewed the resident's note and discussed the case with the resident. I agree with the resident's findings and plan as documented. SUBJECTIVE: Feels better. SOB improved. No cough/sputum/fevers/chills. OBJECTIVE: Afebrile, Hemodynamically Stable. SpO2 97% on 2L Last Vital Signs Temp Pulse Resp BP Pulse Ox 98.4 F 69 16 122/62 97% on 2L 10/20/19 05:52 10/20/19 05:52 10/20/19 05:52 10/20/19 05:52 10/20/19 20:19 Heart - S1, S2, RRR Lungs - clear to auscultation, decreased at bases. Abdomen - Soft, non-tender. Bowel Sounds normal. Extremities - trace edema, no calf tenderness. Laboratory Results - last 24 hr 10/19/19 10/19/19 10/19/19 12:04 17:00 21:18 WBC RBC Hgb Hct MCV MCH MCHC RDW Plt Count MPV Sodium Potassium Chloride Carbon Dioxide Anion Gap BUN Creatinine Est GFR (CKD-EPI)AfAm Est GFR (CKD-EPI)NonAf POC Glucometer 140 122 132 Random Glucose Calcium Magnesium Total Bilirubin AST ALT Alkaline Phosphatase Total Protein Albumin 10/20/19 10/20/19 10/20/19 05:39 07:09 07:09 WBC 10.5 H RBC 5.90 H Hgb 12.4 Hct 39.7 MCV 67.2 L MCH 21.0 L MCHC 31.2 L RDW 16.0 H Plt Count 234 MPV 8.3 Sodium 139 Potassium 4.0 Chloride 98 Carbon Dioxide 34 H Anion Gap 7 L BUN 52.3 H Creatinine 1.3 Est GFR (CKD-EPI)AfAm 45.19 Est GFR (CKD-EPI)NonAf 38.99 POC Glucometer 114 Random Glucose 115 H Calcium 9.0 Magnesium 2.2 Total Bilirubin 0.5 AST 21 ALT 12 L Alkaline Phosphatase 79 Total Protein 7.3 Albumin 3.2 L Current Medications Generic Name Dose Route Start Last Admin Trade Name Freq PRN Reason Stop Dose Admin Amlodipine Besylate 10 mg 10/17/19 10:00 10/20/19 10:26 Norvasc - PO 10 mg DAILY [facility] Administration Atorvastatin Calcium 10 mg 10/16/19 22:00 10/19/19 21:19 Lipitor - PO 10 mg HS [facility]U Administration Carvedilol 6.25 mg 10/16/19 22:00 10/19/19 21:19 Coreg - PO 6.25 mg HS [facility] Administration Carvedilol 12.5 mg 10/17/19 10:00 10/20/19 10:26 Coreg - PO 12.5 mg DAILY [facility] Administration Furosemide 20 mg 10/20/19 10:00 10/20/19 10:26 Lasix - PO 20 mg DAILY [facility] Administration Heparin Sodium (Porcine) 5,000 unit 10/18/19 14:30 10/20/19 05:41 Heparin - SQ 5,000 unit TID [facility] Administration Insulin Aspart 1 vial 10/16/19 16:30 10/20/19 06:11 Novolog Vial Sliding Scale - SQ Not Given ACHS [facility] Protocol Losartan Potassium 25 mg 10/19/19 11:15 10/20/19 10:26 Cozaar - PO 25 mg DAILY [facility] Administration Home Medications Medication Instructions Recorded Amlodipine Besylate [Norvasc -] 10 mg PO DAILY 01/10/19 Atorvastatin Calcium [Lipitor] 10 mg PO HS 01/10/19 Metformin HCl [Glucophage] 500 mg PO BID 01/10/19 Furosemide [Lasix -] 20 mg PO DAILY #30 tablet 01/11/19 Carvedilol 6.25 mg PO HS 10/16/19 Carvedilol 12.5 mg PO DAILY 10/16/19 Losartan/Hydrochlorothiazide 1 tab PO DAILY 10/16/19 [Losartan-Hctz 100-25 mg Tab] ASSESSMENT AND PLAN: 79 year old female with history of HTN, HLD, Chronic Diastolic CHF, DM 2, presented with increasing shortness of breath. 1. Acute Hypoxic Respiratory Failure secondary to Acute on Chronic Diastolic CHF +/- Severe Pulmonary HTN. Echo - grade II diastolic CHF, severe Pul HTN Transitioned to home dose oral lasix. Unable to wean off O2 - desaturates on RA - for discharge on 2L via [facility] to follow as out-patient. 2. ANDREW sec to Cardiorenal Syndrome versus drug induced AIN Losartan/HCTZ initially held. Renal function normalized. Losartan re-introduced at lower dose. Nephrology to follow as out-patient. 3. Possible UTI ESBL + Urine Cx < 60,000 CFU/ml No need for further Abx as per ID. 4. Hyperkalemia sec to ANDREW - resolved. ARB resumed at lower dose of 25mg. 5. HTN - Continue Coreg and Amlodipine. Losartan resumed at lower dose of 25mg. HCTZ not to be resumed at this time. 6. HLD - continue Statin 7. DM 2 - Resume Metformin on discharge. 8. Severe Pul HTN - DC on O2. 9. Microcytosis - non-Iron deficient - for Hemtology follow up as out-patient. Medicaly optimized for discharge on Home O2 at 2L with Pulm, Cardio, Hematology , PCP follow ups.
[2019-10-20 11:17] VITALS: BP 140/53; PULSE 65; TEMP 98.3
--- NOTE | 2019-10-20 13:31 | PN ---
Progress Note, Physician History of Present Illness: Pt seen and examined at bedside. She is awake and alert. She denies shortness of breath. She is eager to go home. - Objective Vital Signs: Vital Signs Temperature 98.3 F 10/20/19 08:40 Pulse Rate 65 10/20/19 08:40 Respiratory Rate 17 10/20/19 08:40 Blood Pressure 140/53 L 10/20/19 08:40 O2 Sat by Pulse Oximetry (%) 95 10/20/19 08:40 Constitutional: Yes: Calm Eyes: Yes: Conjunctiva Clear HENT: Yes: Atraumatic Neck: Yes: Supple Cardiovascular: Yes: S1, S2 Respiratory: Yes: CTA Bilaterally Gastrointestinal: Yes: Normal Bowel Sounds, Soft Genitourinary: Yes: WNL Musculoskeletal: Yes: WNL Edema: No Neurological: Yes: Oriented Psychiatric: Yes: Oriented Labs: CBC, BMP 10/20/19 07:09 10/20/19 07:09 Problem List - Problems (1) ANDREW (acute kidney injury) Code(s): N17.9 - ACUTE KIDNEY FAILURE, UNSPECIFIED (2) CHF exacerbation Code(s): I50.9 - HEART FAILURE, UNSPECIFIED Qualifiers: Heart failure type: diastolic Qualified Code(s): I50.33 - Acute on chronic diastolic (congestive) heart failure (3) Hyperkalemia Code(s): E87.5 - HYPERKALEMIA Assessment/Plan Impression 1. ANDREW 2. hyperkalemia 3. CHF 4. htn 5. DM 6. UTI - ESBL Plan - cont po lasix - cont losartan at 25 mg - monitor potassium - will need outpt follow up, discussed with and son - discussed with medical team
--- NOTE | 2019-10-20 16:01 | DS ---
Physical Exam: SUBJECTIVE: Patient seen and examined. Pt states that her breathing has improved significantly. Otherwise pt is asymptomatic and afebrile, without any other c/o. Denies f/c/n/v/d/chest pain, sob. OBJECTIVE: Vital Signs Period Temp Pulse Resp BP Sys/[place] Pulse Ox Last 24 Hr 98 F-98.9 F 63-69 16-20 109-140/53-80 95-95 PHYSICAL EXAM GENERAL: The patient is awake, alert, and fully oriented, in no acute distress.. EYES: PERRL, extraocular movements intact, ENT: moist mucous membranes. NECK: Trachea midline, full range of motion, supple. LUNGS: Breath sounds equal, clear to auscultation bilaterally, no wheezes, no crackles, HEART: Regular rate and rhythm, S1, S2 without murmur, rub or gallop. ABDOMEN: Soft, nontender, nondistended, normoactive bowel sounds, no guarding, EXTREMITIES: 2+ pulses, warm, well-perfused, no edema. NEUROLOGICAL: Normal speech, gait not observed. SKIN: Warm, dry, normal turgor, no rashes or lesions noted Laboratory Results - last 24 hr 10/20/19 10/20/19 07:09 07:09 WBC 10.5 H RBC 5.90 H Hgb 12.4 Hct 39.7 MCV 67.2 L MCH 21.0 L MCHC 31.2 L RDW 16.0 H Plt Count 234 MPV 8.3 Sodium 139 Potassium 4.0 Chloride 98 Carbon Dioxide 34 H Anion Gap 7 L BUN 52.3 H Creatinine 1.3 Est GFR (CKD-EPI)AfAm 45.19 Est GFR (CKD-EPI)NonAf 38.99 POC Glucometer Random Glucose 115 H Calcium 9.0 Magnesium 2.2 Total Bilirubin 0.5 AST 21 ALT 12 L Alkaline Phosphatase 79 Total Protein 7.3 Albumin 3.2 L Home Medications Medication Instructions Recorded Amlodipine Besylate [Norvasc -] 10 mg PO DAILY 01/10/19 Atorvastatin Calcium [Lipitor] 10 mg PO HS 01/10/19 Furosemide [Lasix -] 20 mg PO DAILY #30 tablet 01/11/19 Carvedilol 12.5 mg PO DAILY 10/16/19 Losartan Potassium 25 mg PO DAILY #30 tablet 10/20/19 Metformin HCl [Glucophage] 500 mg PO DAILY 30 Days #30 tablet 10/20/19 Microbiology 10/16/19 08:18 Urine - Urine [place] Urine Culture - Final Escherichia Coli Esbl [employer] HOSPITAL COURSE: Date of Admission:10/16/19 79 year old female with history of hypertension, hyperlipidemia, HFpEf, noninsulin dependent diabetes mellitus, presents with complaint of shortness of breath. Pt was found to have Acute hypoxic respiratory failure secondary to fluid overload vs CAP. Pt was started on Azithromycin and rocephin for the CAP and Lasix 40 mg daily for fluid overload. Pt was also found to have ANDREW w/ BUN 80.6 and Cre 1.6. Pt was also found to have ESBL+ asymptomatic bacteruria for which abx were not necessary. We held home Losartan- HCTZ in setting of ANDREW and then resumed it on discharge as the pt's renal fxn began to improve. Pt required 4- 2L oxygen on NC but we started to wean it down, but she failed her pre and post , therefore we sent her home on oxygen. Pt began to improve and abx were D/adelaide. Pt was sent home on home dose of 20 mg Lasix as per cardiology, Dr. Julien and Metformin [address] Horowitz, nephrology (instead of pt's home dose of metformin which was 500 BID). ECHO 01/21: normal LVEF and wall thicknesses; mild MR; moderate aortic sclerosis , without significant ; severe pulmonary HTN. r/p ECHO 10/17- EF 60%, diastolic dysfunction, Grade II(pseudonormalization pattern), mild MR, moderate TR, mild Aortic sclerosis, Mild FL Renal/Bladder US- moderate atrophic kidneys, no evidence of hydronephrosis or acute pathology CXR basilar infiltrates, no focal consolidation, cardiomegaly EKG showed sinus bradycardia, HR 53, QTc 407, no ST changes, unchanged vs Date of Discharge: 10/20/19 Minutes to complete discharge: 40 Discharge Summary Problems reviewed: Yes Reason For Visit: ACUTE KKIDNEY INJURY/ACUTE ON CHRONIC CONGESTIVE Condition: Improved - Instructions Diet, Activity, Other Instructions: You were admitted to the hospital for shortness of breath. While in the hospital, we evaluated you with lab work, blood work and imaging including x ray of your chest and CAT scans of your chest. We found that your symptoms were caused by a worsening of your congestive heart failure. We treated you with medications including IV Lasix and your symptoms improved significantly. We have made some changes to your medications, please take your medications as instructed below, Medication Changes: 1.STOP taking your Hydrochlorothiazide/Losartan 2.START taking Losartan 25 mg daily by mouth 3.STOP taking Metformin 500mg twice daily, Instead START taking Metformin 500mg Once a day. 3.Use Oxygen for home to help you breath better Continue taking your home dose of Lasix 20mg until follow up. Follow up with the following physicians: 1. Follow up with Dr. Bond, the Toe Laster within a week to make adjustments of your medications 2. Follow up with Dr. Pride, the drier take off tender within 1 week 3. Follow up with your primary care physician within 1 week. 4. Follow up with Pulmonary for Pulmonary HTN seen on Echo 5. Follow up with Hematology for microcytosis of red blood cells Activity and Diet 1. Low carb diet, low sodium diet. Continue all your other medications as prescribed Please return to the emergency room, if your experience worsening of your symptoms, chest pain, shortness of breath or any worsening of your condition. Referrals: Carlos Ortega MD [Staff Physician] - 1 Week (Severe Pul HTN) ON STAFF,NOT [Primary Care Provider] - Pietro Lucio MD [Staff Physician] - 1 Week (Microcytosis) Allison Horowitz MD [Staff Physician] - 2 Weeks Osmany Pride MD [Staff Physician] - Disposition: HOME - Home Medications Comprehensive Discharge Medication List: Ambulatory Orders Amlodipine Besylate [Norvasc -] 10 mg PO DAILY 01/10/19 Atorvastatin Calcium [Lipitor] 10 mg PO HS 01/10/19 Furosemide [Lasix -] 20 mg PO DAILY #30 tablet 01/11/19 Carvedilol 12.5 mg PO DAILY 10/16/19 Losartan Potassium 25 mg PO DAILY #30 tablet 10/20/19 Metformin HCl [Glucophage] 500 mg PO DAILY 30 Days #30 tablet 10/20/19 This patient is new to me today: Yes Date on this admission: 10/27/19 Emergency Visit: Yes ED Registration Date: 10/16/19 Care time: The patient presented to the Emergency Department on the above date and was hospitalized for further evaluation of their emergent condition. Critical Care patient: No - Discharge Referral Referred to [facility] Med P.C.: No ATTENDING PHYSICIAN STATEMENT I saw and evaluated the patient. I reviewed the resident's note and discussed the case with the resident. I agree with the resident's findings and plan as documented. SUBJECTIVE: OBJECTIVE: ASSESSMENT AND PLAN:
== END 2019-10-20 12:52 | disposition home or self-care (01) | DRG 291 ==
LOC: JER 03:51 → JERBED 06:43 → J4S 10-17 18:56
PROVIDERS: ADMIT Internal Medicine
DX: I13.0 Hypertensive heart and chronic kidney disease with heart failure and stage 1 through stage 4 chronic kidney disease, or unspecified chronic kidney disease (principal); G93.41 Metabolic encephalopathy; J18.9 Pneumonia, unspecified organism; J96.01 Acute respiratory failure with hypoxia; I50.33 Acute on chronic diastolic (congestive) heart failure; N17.9 Acute kidney failure, unspecified; E87.1 Hypo-osmolality and hyponatremia; N39.0 Urinary tract infection, site not specified; I43 Cardiomyopathy in diseases classified elsewhere; I10 Essential (primary) hypertension; E78.5 Hyperlipidemia, unspecified; E11.9 Type 2 diabetes mellitus without complications; E87.5 Hyperkalemia; R41.82 Altered mental status, unspecified; R00.1 Bradycardia, unspecified; D50.9 Iron deficiency anemia, unspecified; I27.21 Secondary pulmonary arterial hypertension; B96.20 Unspecified Escherichia coli [E. coli] as the cause of diseases classified elsewhere; E11.22 Type 2 diabetes mellitus with diabetic chronic kidney disease; N18.9 Chronic kidney disease, unspecified; E87.70 Fluid overload, unspecified
CPT/HCPCS: 36415; 71045-TC-FY; 71250-TC; 76775-TC; 76856-TC; 80048; 80053; 81003; 82550; 82565; 82728; 82962; 83036; 83540; 83550; 83605; 83735; 83880; 83930; 83935; 84100; 84300; 84484; 84540; 85025; 85027; 85044; 85651; 86140; 87086; 87186; 87389; 87804; 93005; 93010; 93306-TC; 94761; 99285-25; J1644